=== PATIENT | female | born 1945 | race Caucasian/White ===

== ENCOUNTER → 2017-06-05 | Outpatient (CLI) | payer MEDICARE ==
[2017-06-08 14:19] LABS: Protein C (Activity) 85 % (70 - 130)
[2017-06-08 14:58] LABS: Hexagonal Phase Neutralization Positive (Negative)
[2017-06-09 11:41] LABS: Free Protein S Antigen 116 % (50 - 147)
== END | disposition home or self-care (01) ==
LOC: LABWHC1 09:51
PROVIDERS: ATTEND Family Medicine
DX: I82.409 Acute embolism and thrombosis of unspecified deep veins of unspecified lower extremity (principal)
CPT/HCPCS: 36415; 81241; 81291; 83090; 85300; 85303; 85306; 85613; 85730; 86147

== ENCOUNTER → 2018-01-20 | Outpatient (CLI) | payer MEDICARE ==
--- NOTE | 2018-01-21 11:18 | MM ---
Reason for exam: screening (asymptomatic). Last mammogram was performed 2 years and 2 months ago. History: Patient is postmenopausal and is nulliparous. Took estrogen for 4 years beginning at age 56. Took progesterone for 4 years beginning at age 56. Physical Findings: A clinical breast exam by your physician is recommended on an annual basis and results should be correlated with mammographic findings. MG 3D Screening Mammo W/Cad Bilateral CC and MLO view(s) were taken. Prior study comparison: November 07, 2015, bilateral MG screening mammo w CAD. There are scattered fibroglandular densities. There is chronic nodularity bilaterally. No significant changes when compared with prior studies. ASSESSMENT: Benign, BI-RAD 2 RECOMMENDATION: Routine screening mammogram of both breasts in 1 year.
== END | disposition home or self-care (01) ==
LOC: RADMAMWWP 10:30
PROVIDERS: ATTEND Family Medicine
DX: Z12.31 Encounter for screening mammogram for malignant neoplasm of breast (principal)
CPT/HCPCS: 77063; 77067

== ENCOUNTER → 2019-06-01 | Outpatient (CLI) | payer MEDICARE ==
--- NOTE | 2019-06-02 14:52 | MM ---
Reason for exam: screening (asymptomatic). Last mammogram was performed 1 year and 4 months ago. History: Patient is postmenopausal and is nulliparous. Took estrogen for 4 years beginning at age 56. Took progesterone for 4 years beginning at age 56. Physical Findings: A clinical breast exam by your physician is recommended on an annual basis and results should be correlated with mammographic findings. MG 3D Screening Mammo W/Cad Bilateral CC and MLO view(s) were taken. Prior study comparison: January 20, 2018, bilateral MG 3d screening mammo w/cad. November 22, 2015, left breast MG 3d work up w/cad LT. There is chronic nodularity bilaterally. No significant changes when compared with prior studies. ASSESSMENT: Benign, BI-RAD 2 RECOMMENDATION: Routine screening mammogram of both breasts in 1 year.
== END | disposition home or self-care (01) ==
LOC: RADMAMWWP 14:31
PROVIDERS: ATTEND Family Medicine
DX: Z12.31 Encounter for screening mammogram for malignant neoplasm of breast (principal)
CPT/HCPCS: 77063; 77067

== ENCOUNTER 2021-05-08 20:07 | Inpatient (IN) | payer MEDICARE ==
[2021-05-08] MEDS ORDERED: SODIUM CHLORIDE 0.9% 1,000 ML IV STA (21:07)
[2021-05-08] MEDS ORDERED: MORPHINE SULFATE 2 MG/ML SYRINGE IVP STA (21:07)
[2021-05-08] MEDS ORDERED: ONDANSETRON 4 MG/2 ML VIAL IVP STA (21:07)
[2021-05-08 21:23] LABS: Basophils # (A) 0.1 k/uL (0-0.2); Basophils % (A) 0 %; Eosinophils # (A) 0.1 k/uL (0-0.7); Eosinophils % (A) 1 %; HCT 39.7 % (34.0-46.0); HGB 12.8 gm/dL (11.4-16.0); Lymphocytes % (A) 16 %; MCH 25.8 pg (25.0-35.0); MCHC 32.1 g/dL (31.0-37.0); MCV 80.3 fL (80.0-100.0); Mean Platelet Volume 10.1; Monocytes # (A) 0.9 k/uL (0-1.0); Monocytes % (A) 8 %; Neutrophils # (A) 9.3 k/uL (1.3-7.7); Neutrophils % (A) 74 %; Platelet Count 163 k/uL (150-450); RBC 4.94 m/uL (3.80-5.40); RDW 14.2 % (11.5-15.5); WBC 12.6 k/uL (3.8-10.6)
[2021-05-08 21:37] LABS: Appearance,Urine Clear (Clear); Bilirubin,Urine Negative (Negative); Blood,Urine Negative (Negative); Color,Urine Light Yellow; Glucose,Urine (UA) Negative (Negative); Ketones,Urine Negative (Negative); Leukocyte Esterase,Urine Negative (Negative); Nitrite,Urine Negative (Negative); Protein,Urine Negative (Negative); Specific Gravity,Urine 1.003 (1.001-1.035); Urobilinogen,Urine <2.0 mg/dL (<2.0)
[2021-05-08 22:15] LABS: ALT 18 U/L (4-34); AST 28 U/L (14-36); African American GFR (CKD) >90 (>60 ml/min/1.73 sqM); Alkaline Phosphatase 97 U/L (38-126); Amylase 74 U/L (30-110); Anion Gap 8 mmol/L; Blood Urea Nitrogen 10 mg/dL (7-17); Calcium 9.3 mg/dL (8.4-10.2); Carbon Dioxide 25 mmol/L (22-30); Chloride 105 mmol/L (98-107); Glucose 114 mg/dL (74-99); Lipase 133 U/L (23-300); Non-African American GFR(CKD) 88 (>60 ml/min/1.73 sqM); Potassium 3.9 mmol/L (3.5-5.1); Sodium 138 mmol/L (137-145); Total Bilirubin 1.8 mg/dL (0.2-1.3); Total Protein 6.7 g/dL (6.3-8.2)
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
[2021-05-08] MEDS ORDERED: HYDROmorphone 0.5 MG/0.5 ML SYRINGE IVP STA (22:31)
--- NOTE | 2021-05-08 22:42 | CT ---
EXAMINATION TYPE: CT abdomen pelvis wo con DATE OF EXAM: 05/08/2021 COMPARISON: 02/14/2016 HISTORY: flank pain CT DLP: 772.2 mGycm Automated exposure control for dose reduction was used. Lung bases are clear. There is no pleural effusion. Heart size is normal. There is no pericardial eff usion. Liver spleen stomach pancreas appear intact. There are several calcified gallstones. The bile ducts a re not dilated. Gallbladder is large and measures 5 cm in diameter. Common bile duct is not dilated. There is no adrenal mass. Kidneys have normal size. There are apparent left side renal parapelvic cys ts. The ureters are not dilated. There is no retroperitoneal adenopathy. Bladder distends smoothly. T here is left hip prosthesis. There is no inguinal hernia. There are multiple sigmoid diverticula. The re is no diverticulitis. Appendix is not clearly seen. There is no sign of thickened appendix. There is no mesenteric edema. T here is no ascites or free air. There is no bowel obstruction. The bony pelvis is intact. Lumbar spin e appears intact. There is no compression fracture. IMPRESSION: Cholelithiasis. There is dilated gallbladder which is a change compared to old exam. Cholecystitis is possible. Sigmoid diverticulosis without diverticulitis. No evidence of renal stone or obstruction.
[2021-05-08] MEDS ORDERED: NALOXONE 0.4 MG/ML 1 ML VIAL IV PRN (23:10)
[2021-05-08] MEDS ORDERED: ONDANSETRON 4 MG/2 ML VIAL IVP PRN (23:10)
[2021-05-08] MEDS ORDERED: PIPERACILLIN-TAZOBACTAM 3.375 GM in SODIUM CHLORIDE 0.9% 100 ML IVPB ONE (23:15)
[2021-05-09] MEDS: SODIUM CHLORIDE 0.9% 1,000 ML IV SCH ×3 (01:23→21:18)
[2021-05-09] MEDS ORDERED: HYDROmorphone 1 MG/ML 1 ML SYRINGE IVP PRN (01:47)
[2021-05-09 06:56] LABS: Glucose,Whole Blood 93 mg/dL (75-99)
[2021-05-09] MEDS: PIPERACILLIN-TAZOBACTAM 3.375 GM in SODIUM CHLORIDE 0.9% 100 ML IVPB SCH ×3 (08:02→23:36)
[2021-05-09] MEDS: HYDROmorphone 0.5 MG/0.5 ML SYRINGE IVP PRN ×2 (09:32→15:15)
[2021-05-09 12:10] LABS: Glucose,Whole Blood 94 mg/dL (75-99)
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
[2021-05-09] MEDS ORDERED: LIDOCAINE 1% (10MG/ML) FOR IV START INTRADERMA PRN (14:14)
[2021-05-09 17:45] LABS: Glucose,Whole Blood 106 mg/dL (75-99)
[2021-05-09] MEDS: LACTATED RINGERS 1,000 ML IV SCH (19:44)
[2021-05-09 20:42] LABS: Glucose,Whole Blood 128 mg/dL (75-99)
[2021-05-09] MEDS: ATORVASTATIN 20 MG TAB PO SCH (21:17)
[2021-05-09] MEDS: PANTOPRAZOLE 40 MG TABLET PO SCH (21:18)
[2021-05-10] MEDS: SODIUM CHLORIDE 0.9% 1,000 ML IV SCH ×2 (05:15→15:30)
[2021-05-10] MEDS: PIPERACILLIN-TAZOBACTAM 3.375 GM in SODIUM CHLORIDE 0.9% 100 ML IVPB SCH ×2 (07:46→16:51)
--- NOTE | 2021-05-10 07:52 | P.HPADDEND ---
H&P Addendum H&P Addendum Date: 05/10/21 Patient seen and evaluated. Echo obtained for cardiac clearance. Robotic cholecystectomy described reviewed
--- NOTE | 2021-05-10 08:01 | ECHOF ---
Referral Reason:Atrial fibrillation MEASUREMENTS -------- HEIGHT: 157.5 cm WEIGHT: 83.0 kg BP: RVIDd: 2.7 cm (< 3.3) IVSd: 1.2 cm (0.6 - 1.1) LVIDd: 3.4 cm (3.9 - 5.3) LVPWd: 1.4 cm (0.6 - 1.1) IVSs: 1.5 cm LVIDs: 2.7 cm LVPWs: 1.6 cm LA Diam: 4.1 cm (2.7 - 3.8) LAESV Index (A-L): 48.64 ml/m Ao Diam: 2.7 cm (2.0 - 3.7) AV Cusp: 2.0 cm (1.5 - 2.6) LA Diam: 4.0 cm (2.7 - 3.8) MV EXCURSION: 13.189 mm (> 18.000) MV EF SLOPE: 66 mm/s (70 - 150) EPSS: 0.5 cm MV E Ronni: 0.74 m/s MV DecT: 218 ms MV A Ronni: 1.06 m/s MV E/A Ratio: 0.70 RAP: 5.00 mmHg RVSP: 30.53 mmHg FINDINGS -------- Atrial fibrillation. This was a technically good study. The left ventricular size is normal. There is mild concentric left ventricular hypertrophy. Overa ll left ventricular systolic function is low-normal with, an EF between 50 - 55 %. The right ventricle is normal in size. LA is moderately dilated 34-39 ml/m2 The right atrial size is normal. There is mild aortic valve sclerosis. There is no evidence of aortic regurgitation. Mild mitral annular calcification present. Mild mitral regurgitation is present. Mild tricuspid regurgitation present. Right ventricular systolic pressure is normal at < 35 mmHg. There is no pulmonic regurgitation present. The aortic root size is normal. There is no pericardial effusion. CONCLUSIONS -------- 1. The left ventricular size is normal. 2. There is mild concentric left ventricular hypertrophy. 3. Overall left ventricular systolic function is low-normal with, an EF between 50 - 55 %. 4. The right ventricle is normal in size. 5. LA is moderately dilated 34-39 ml/m2 6. The right atrial size is normal. 7. There is mild aortic valve sclerosis. 8. Mild mitral annular calcification present. 9. Mild mitral regurgitation is present. 10. Mild tricuspid regurgitation present. 11. The aortic root size is normal. 12. There is no pericardial effusion. COMPLIANCE COUNSEL: Yanni Riggs RDCS
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
[2021-05-10 08:55] LABS: Basophils % (A) 0 %; Eosinophils # (A) 0.1 k/uL (0-0.7); Eosinophils % (A) 1 %; HGB 12.4 gm/dL (11.4-16.0); Lymphocytes # (A) 1.8 k/uL (1.0-4.8); Lymphocytes % (A) 19 %; MCH 27.7 pg (25.0-35.0); MCHC 34.4 g/dL (31.0-37.0); MCV 80.7 fL (80.0-100.0); Mean Platelet Volume 10.1; Monocytes # (A) 0.8 k/uL (0-1.0); Monocytes % (A) 8 %; Neutrophils # (A) 6.6 k/uL (1.3-7.7); Neutrophils % (A) 70 %; Platelet Count 131 k/uL (150-450); RBC 4.46 m/uL (3.80-5.40); RDW 13.9 % (11.5-15.5); WBC 9.5 k/uL (3.8-10.6)
[2021-05-10 09:01] LABS: Prothrombin Time 10.9 sec (9.0-12.0)
[2021-05-10 09:03] LABS: ALT 22 U/L (4-34); AST 29 U/L (14-36); African American GFR (CKD) >90 (>60 ml/min/1.73 sqM); Albumin 3.3 g/dL (3.5-5.0); Albumin/Globulin Ratio 1.3; Alkaline Phosphatase 106 U/L (38-126); Anion Gap 6 mmol/L; Blood Urea Nitrogen 7 mg/dL (7-17); Calcium 8.9 mg/dL (8.4-10.2); Carbon Dioxide 26 mmol/L (22-30); Chloride 108 mmol/L (98-107); Globulin 2.6 g/dL; Glucose 107 mg/dL (74-99); Non-African American GFR(CKD) 87 (>60 ml/min/1.73 sqM); Potassium 3.9 mmol/L (3.5-5.1); Sodium 140 mmol/L (137-145); Total Bilirubin 2.7 mg/dL (0.2-1.3); Total Protein 5.9 g/dL (6.3-8.2)
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
--- NOTE | 2021-05-10 15:02 | US ---
EXAMINATION TYPE: US gallbladder DATE OF EXAM: 05/10/2021 COMPARISON: NONE CLINICAL HISTORY: CBD stones. known GB stones, pending cholecystectomy tomorrow EXAM MEASUREMENTS: Liver Length: 18.8 cm Gallbladder Wall: 0.7 cm CBD: 0.6 cm Right Kidney: 10.5 x 4.5 x 5.3 cm Pancreas: not seen due to bowel gas Liver: limited views due to bowel gas, borderline large for size Gallbladder: multiple stones, wall thickening, pericholecystic gutter fluid Evidence for sonographic Solorzano's sign: no CBD: wnl Right Kidney: wnl IMPRESSION: 1. Borderline enlarged liver. 2. Cholelithiasis with small amount of pericholecystic fluid.
--- NOTE | 2021-05-10 15:41 | P.PN ---
Subjective Progress Note Date: 05/10/21 Patient presents with history of cholelithiasis. Total bilirubin now elevated. Cardiac clearance pending. Recommend GI consultation for possible CBD obstruction. Right upper quadrant ultrasound to assess common bile duct size for suspected CBD obstruction Otherwise surgery deferred until cardiac clearance obtained Objective - Vital Signs Vital signs: Vital Signs Temp 98.6 F 05/10/21 07:00 Pulse 64 05/10/21 07:00 Resp 19 05/10/21 07:00 BP 164/68 05/10/21 07:00 Pulse Ox 95 05/10/21 07:00 Intake & Output 05/09/21 05/10/21 05/10/21 18:59 06:59 18:59 Intake Total 400 Balance 400 Intake: Oral 400 Other: Voiding Method Toilet # Voids 1 2 - Labs CBC & Chem 7: 05/10/21 08:20 05/10/21 08:20 Labs: Abnormal Lab Results - Last 24 Hours (Table) 05/09/21 05/09/21 05/10/21 Range/Units 17:43 20:40 08:20 Plt Count 131 L (150-450) k/uL Chloride (98-107) mmol/L Glucose (74-99) mg/dL POC Glucose (mg/dL) 106 H 128 H (75-99) mg/dL Total Bilirubin (0.2-1.3) mg/dL Total Protein (6.3-8.2) g/dL Albumin (3.5-5.0) g/dL 05/10/21 Range/Units 08:20 Plt Count (150-450) k/uL Chloride 108 H (98-107) mmol/L Glucose 107 H (74-99) mg/dL POC Glucose (mg/dL) (75-99) mg/dL Total Bilirubin 2.7 H (0.2-1.3) mg/dL Total Protein 5.9 L (6.3-8.2) g/dL Albumin 3.3 L (3.5-5.0) g/dL Microbiology - Last 24 Hours (Table) 05/08/21 23:50 Blood Culture - Preliminary Blood No Growth after 24 hours 05/08/21 23:35 Blood Culture - Preliminary Blood No Growth after 24 hours
--- NOTE | 2021-05-10 15:43 | P.PN ---
Subjective Progress Note Date: 05/10/21 Margot Redmond is a 76 yo F with PMH of HTN, HLD, hx DVT on xarelto who presented to the ED complaining of continued R abdominal and flank pain over the past few weeks. She states this has been intermittent and over the past few days has become constant and severe. She also endorses nausea, no vomiting. Denies fever, chills dizziness. She denies dysuria. On presentation pt hypertensive, WBC 12.6, bilirubin 1.8, CT abd/pelvis with gallstones and wall thickening. 05/10/2021 NPO, scheduled for surgery today. Xarelto on hold. Maintained on Zosyn. Right upper quadrant tenderness. Denies chest pain, palpitations or shortness of breath. Afebrile, WBC within normal limits. Renal function stable. Objective - Vital Signs Vital signs: Vital Signs Temp 98.4 F 05/10/21 14:47 Pulse 66 05/10/21 14:47 Resp 18 05/10/21 14:47 BP 152/72 05/10/21 14:47 Pulse Ox 96 05/10/21 14:47 Intake & Output 05/09/21 05/10/21 05/10/21 18:59 06:59 18:59 Intake Total 400 240 Balance 400 240 Intake: Oral 400 240 Other: Voiding Method Toilet # Voids 1 2 3 - Exam Gen: Alert and oriented 3, sitting up in bed ,NAD. Vitals reviewed HEENT: normocephalic, atraumatic, mucus membranes dry. Neck: supple, no thyromegaly, no JVD CV: RRR, no murmur Lungs: normal effort, clear throughout Abd: soft, RUQ tenderness Neuro: no focal deficits Skin: warm and dry - Labs CBC & Chem 7: 05/10/21 08:20 05/10/21 08:20 Labs: Abnormal Lab Results - Last 24 Hours (Table) 05/09/21 05/09/21 05/10/21 Range/Units 17:43 20:40 08:20 Plt Count 131 L (150-450) k/uL Chloride (98-107) mmol/L Glucose (74-99) mg/dL POC Glucose (mg/dL) 106 H 128 H (75-99) mg/dL Total Bilirubin (0.2-1.3) mg/dL Total Protein (6.3-8.2) g/dL Albumin (3.5-5.0) g/dL 05/10/21 Range/Units 08:20 Plt Count (150-450) k/uL Chloride 108 H (98-107) mmol/L Glucose 107 H (74-99) mg/dL POC Glucose (mg/dL) (75-99) mg/dL Total Bilirubin 2.7 H (0.2-1.3) mg/dL Total Protein 5.9 L (6.3-8.2) g/dL Albumin 3.3 L (3.5-5.0) g/dL Microbiology - Last 24 Hours (Table) 05/08/21 23:50 Blood Culture - Preliminary Blood No Growth after 24 hours 05/08/21 23:35 Blood Culture - Preliminary Blood No Growth after 24 hours Assessment and Plan Assessment: 1. Acute cholecystitis. 2. HTN. 3. HLD. 4.GERD. Plan: Continue on current medication regime ,monitoring and symptomatic treatment. NPO,OR pending. Pain management as per surgery. Aggressive pulmonary toileting with incentive spirometer ordered. The impression and plan of care has been dictated as directed. : I performed a history and examination of this patient, discussed the same with the dictator. I agree with the dictator's note ,documented as a scribe. Any additional findings or plans will be noted.
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
[2021-05-10] MEDS: PANTOPRAZOLE 40 MG TABLET PO SCH (20:12)
[2021-05-10] MEDS: ATORVASTATIN 20 MG TAB PO SCH (20:12)
[2021-05-10] MEDS: LACTATED RINGERS 1,000 ML IV SCH (22:40)
[2021-05-11] MEDS: PIPERACILLIN-TAZOBACTAM 3.375 GM in SODIUM CHLORIDE 0.9% 100 ML IVPB SCH ×5 (00:43→23:12)
[2021-05-11] MEDS: SODIUM CHLORIDE 0.9% 1,000 ML IV SCH ×3 (00:43→23:10)
[2021-05-11] MEDS ORDERED: INDOCYANINE GREEN 25 MG VIAL IV STA (07:24)
[2021-05-11 07:54] LABS: ALT 25 U/L (4-34); AST 32 U/L (14-36); African American GFR (CKD) >90 (>60 ml/min/1.73 sqM); Albumin 3.1 g/dL (3.5-5.0); Albumin/Globulin Ratio 1.2; Alkaline Phosphatase 132 U/L (38-126); Anion Gap 5 mmol/L; Blood Urea Nitrogen 8 mg/dL (7-17); Calcium 8.9 mg/dL (8.4-10.2); Carbon Dioxide 24 mmol/L (22-30); Chloride 111 mmol/L (98-107); Globulin 2.6 g/dL; Glucose 108 mg/dL (74-99); Non-African American GFR(CKD) 86 (>60 ml/min/1.73 sqM); Potassium 3.9 mmol/L (3.5-5.1); Sodium 140 mmol/L (137-145); Total Bilirubin 2.4 mg/dL (0.2-1.3); Total Protein 5.7 g/dL (6.3-8.2)
[2021-05-11] MEDS: HEPARIN SODIUM,PORCINE/PF 5,000 UNIT/0.5 ML SYRINGE SQ SCH ×2 (08:59→21:02)
[2021-05-11] MEDS: LACTATED RINGERS 1,000 ML IV SCH ×2 (09:17→10:23)
[2021-05-11] MEDS: lisinopriL 20 MG TAB PO SCH (09:18)
[2021-05-11] MEDS ORDERED: MIDAZOLAM 2 MG/2 ML VIAL IV ONE (09:38)
[2021-05-11] MEDS ORDERED: PROPOFOL 10 MG/ML 20 ML VIAL IV ONE (10:23)
[2021-05-11] MEDS ORDERED: LIDOCAINE 1% INJ 10MG/ML (20 ML MDV) ONE (10:23)
[2021-05-11] MEDS ORDERED: SUCCINYLCHOLINE CHLORIDE 100 MG/5 ML SYR IV ONE (10:23)
[2021-05-11] MEDS ORDERED: NEOSTIGMINE 1 MG/ML 10 ML VIAL ONE (10:23)
[2021-05-11] MEDS ORDERED: GLYCOPYRROLATE 0.2 MG/ML 2 ML VIAL ONE (10:23)
[2021-05-11] MEDS ORDERED: LIDOCAINE 1%-EPI 1:100,000 20 ML VIAL SQ ONE (10:23)
[2021-05-11] MEDS ORDERED: fentaNYL (PF) 50 MCG/ML 2 ML AMP ONE (10:23)
[2021-05-11] MEDS ORDERED: HYDROmorphone (PF) 1 MG/ML ONE (10:23)
[2021-05-11] MEDS ORDERED: MIDAZOLAM 2 MG/2 ML VIAL ONE (10:23)
[2021-05-11] MEDS ORDERED: ROCURONIUM 10 MG/ML (5 ML VIAL) IV ONE (10:23)
--- NOTE | 2021-05-11 10:23 | P.HPADDEND ---
H&P Addendum H&P Addendum Date: 05/11/21 Benefits and risks robotic cholecystectomy described including the increased risks of bleeding due to chronic anticoagulation. Patient was to proceed with surgery as described.
[2021-05-11] MEDS ORDERED: LACTATED RINGERS 1,000 ML IV ONE (12:10)
--- NOTE | 2021-05-11 12:27 | P.PN ---
Subjective Progress Note Date: 05/11/21 Principal diagnosis: Cholelithiasis, elevated liver enzymes Unable to see patient was undergoing a cholecystectomy, we'll reevaluate tomorrow. Objective - Vital Signs Vital signs: Vital Signs Temp 98.5 F 05/11/21 09:18 Pulse 60 05/11/21 09:18 Resp 16 05/11/21 09:18 BP 177/81 05/11/21 09:18 Pulse Ox 96 05/11/21 09:18 Intake & Output 05/10/21 05/11/21 05/11/21 18:59 06:59 18:59 Intake Total 480 900 200 Output Total 30 Balance 480 900 170 Weight 83.007 kg Intake: IV 200 Intake, IV Titration 900 Amount Piperacillin-Tazobactam 3 100 .375 gm In Sodium Chloride 0.9% 100 ml @ 25 mls/hr IVPB Q8HR [facility] Rx# :[id number] Sodium Chloride 0.9% 1, 800 000 ml @ 100 mls/hr IV . Q10H [facility] Rx#:[id number] Oral 480 Output: Estimated Blood Loss 30 Other: Voiding Method Toilet Toilet # Voids 3 2 1 - Labs CBC & Chem 7: 05/10/21 08:20 05/11/21 06:09 Labs: Abnormal Lab Results - Last 24 Hours (Table) 05/11/21 05/11/21 Range/Units 06:09 06:09 Chloride 111 H (98-107) mmol/L Glucose 108 H (74-99) mg/dL Total Bilirubin 2.5 H 2.4 H (0.2-1.2) mg/dL Alkaline Phosphatase 132 H (38-126) U/L Total Protein 5.7 L (6.3-8.2) g/dL Albumin 3.1 L (3.5-5.0) g/dL Microbiology - Last 24 Hours (Table) 05/08/21 23:50 Blood Culture - Preliminary Blood No Growth after 48 hours 05/08/21 23:35 Blood Culture - Preliminary Blood No Growth after 48 hours
[2021-05-11] MEDS: HYDROmorphone 0.5 MG/0.5 ML SYRINGE IVP PRN ×3 (12:36→23:04)
[2021-05-11] MEDS ORDERED: ACETAMINOPHEN IV (For NPO) 1,000 MG in EMPTY BAG 1 BAG IVPB ONE (12:57)
--- NOTE | 2021-05-11 13:00 | P.OP ---
Date of Procedure: 05/11/21 Preoperative Diagnosis: Acute cholecystitis, chronic anticoagulation Postoperative Diagnosis: Acute gangrene cholecystitis with hydrops Procedure(s) Performed: Robotic cholecystectomy, placement #19 drain right upper quadrant Anesthesia: SOFÍAA, local Surgeon: Annie Montesinos Estimated Blood Loss (ml): 30 Pathology: other (Anaerobic and aerobic cultures gallbladder fluid) Condition: stable Disposition: floor Operative Findings: 1. Clear bile from the gallbladder consistent with hydrops and acute cholecystitis due to cystic duct obstruction 2. Infundibulum was adherent to the common bile duct requiring subtotal cholecystectomy along infundibulum
[2021-05-11] MEDS: PANTOPRAZOLE 40 MG TABLET PO SCH (21:01)
[2021-05-11] MEDS: ATORVASTATIN 20 MG TAB PO SCH (21:01)
[2021-05-11] MEDS: TRIAMCINOLONE 0.1% CREAM 80 GM TUBE TOPICAL SCH (21:04)
--- NOTE | 2021-05-11 21:14 | PN ---
PROGRESS NOTE DATE OF SERVICE: 05/11/2021 I am covering for Dr. Jeffers. HISTORY: This 76-year-old woman admitted with acute cholecystitis, underwent robotic assisted laparoscopic cholecystectomy by Dr. Montesinos. There is no history of chest pain, palpitations, GI bleed. The patient is able to ambulate with support at this time. PHYSICAL EXAMINATION: Alert and oriented x2. Pulse 71, blood pressure 147/72, respirations 16, temperature 97. 4 HEENT: Conjunctivae normal. NECK: No JVD. CARDIOVASCULAR: S1 and S2 present. LUNGS: Breath sounds diminished in the bases. No rhonchi. No crackles. ABDOMEN: Soft distended, status post surgery. EXTREMITIES: Legs no edema no swelling. NERVOUS SYSTEM: As mentioned. No focal deficits. LABS: WBC 9.2, platelets 131, and total bilirubin is 2.4, alkaline phosphatase 132, total protein is 5.7. ASSESSMENT: 1. Acute cholecystitis, status post robotic assisted laparoscopic cholecystectomy. 2. Thrombocytopenia. 3. Elevated bilirubin. 4. Elevated alkaline phosphatase. 5. History of gastroesophageal reflux disease. 6. Hyperlipidemia. 7. History of degenerative joint disease. 8. History of depression. 9. Eczema. 10.FULL CODE. RECOMMENDATIONS AND DISCUSSION: In this 76-year-old with multiple medical issues, at this time I recommend to continue current management and symptomatic treatment. The patient underwent laparoscopic cholecystectomy today. I would recommend repeat labs. Patient already on broad- spectrum IV antibiotics. Incentive spirometry. DVT prophylaxis. Resume home eczema ointment as well. Continue to monitor. MMODL / IJN: [id number] /
[2021-05-12] MEDS: HYDROmorphone 0.5 MG/0.5 ML SYRINGE IVP PRN ×4 (03:54→21:26)
[2021-05-12] MEDS: PIPERACILLIN-TAZOBACTAM 3.375 GM in SODIUM CHLORIDE 0.9% 100 ML IVPB SCH ×2 (09:06→16:30)
[2021-05-12] MEDS: TRIAMCINOLONE 0.1% CREAM 80 GM TUBE TOPICAL SCH ×2 (09:07→21:21)
[2021-05-12] MEDS: HEPARIN SODIUM,PORCINE/PF 5,000 UNIT/0.5 ML SYRINGE SQ SCH ×2 (09:07→21:21)
[2021-05-12] MEDS: lisinopriL 20 MG TAB PO SCH (09:07)
[2021-05-12 10:40] LABS: African American GFR (CKD) 96.9 (60.0-200.0); Albumin 3.6 g/dL (3.80-4.90); Albumin/Globulin Ratio 1.57 (1.60-3.17); Anion Gap 8.2 mmol/L (4.00-12.00); BUN/Creat Ratio 12.86 Ratio (12.00-20.00); Calcium 8.6 mg/dL (8.7-10.3); Carbon Dioxide 24.8 mmol/L (21.6-31.8); Globulin 2.3 g/dL (1.6-3.3); Non-African American GFR(CKD) 83.6 (60.0-200.0); Potassium 4.1 mmol/L (3.5-5.5); Total Bilirubin 2.7 mg/dL (0.2-1.2); Total Protein 5.9 g/dL (6.2-8.2)
[2021-05-12] MEDS ORDERED: SENNOSIDES 8.6 MG TAB PO PRN (11:32)
[2021-05-12 11:35] LABS: Basophils # (A) 0.04 X 10*3/uL (0.00-0.10); Basophils % (A) 0.3 %; Eosinophils # (A) 0.03 X 10*3/uL (0.04-0.35); Eosinophils % (A) 0.2 %; HCT 36.3 % (37.2-46.3); HGB 11.7 g/dL (12.0-15.0); Lymphocytes # (A) 1.23 X 10*3/uL (0.90-5.00); Lymphocytes % (A) 9.5 %; MCHC 32.2 g/dL (32.0-37.0); MCV 83.6 fL (80.0-97.0); Mean Platelet Volume 13.1 fL (9.5-12.2); Monocytes # (A) 1.29 X 10*3/uL (0.20-1.00); Neutrophils # (A) 10.31 X 10*3/uL (1.80-7.70); Neutrophils % (A) 79.6 %; Platelet Count 158 X 10*3/uL (140-440); RBC 4.34 X 10*6/uL (4.10-5.20); RDW 14.5 % (11.5-14.5); WBC 12.95 X 10*3/uL (4.50-10.00)
[2021-05-12] MEDS: DOCUSATE 100 MG CAP PO SCH ×2 (14:51→21:20)
[2021-05-12] MEDS: SODIUM CHLORIDE 0.9% 1,000 ML IV SCH (15:22)
--- NOTE | 2021-05-12 15:33 | P.PN ---
Subjective Progress Note Date: 05/12/21 Family is at bedside. She complains of appropriate incisional pain. She has low appetite. LFTs continue to elevate with total bilirubin. Patient seen by GI for possible ERCP for choledocholithiasis MALU serosanguinous PLAN: 1. Repeat labs 2. Possible ERCP per GI 3. All questions addressed with family. Objective - Vital Signs Vital signs: Vital Signs Temp 99.3 F 05/12/21 14:07 Pulse 88 05/12/21 14:07 Resp 16 05/12/21 14:07 BP 143/79 05/12/21 14:07 Pulse Ox 90 L 05/12/21 14:07 Intake & Output 05/11/21 05/12/21 05/12/21 18:59 06:59 18:59 Intake Total 1500 Output Total 80 30 Balance 1420 -30 Weight 83.007 kg Intake: IV 1500 Output: Drainage 50 30 Abdomen 50 30 Estimated Blood Loss 30 Other: Voiding Method Toilet Toilet # Voids 1 4 3 # Bowel Movements 0 - Labs CBC & Chem 7: 05/12/21 04:56 05/12/21 04:56 Labs: Abnormal Lab Results - Last 24 Hours (Table) 05/12/21 05/12/21 Range/Units 04:56 04:56 WBC 12.95 H (4.50-10.00) X 10*3/uL Hgb 11.7 L (12.0-15.0) g/dL Hct 36.3 L (37.2-46.3) % MPV 13.1 H (9.5-12.2) fL Immature Gran # 0.05 H (0.00-0.04) X 10*3/uL Neutrophils # 10.31 H (1.80-7.70) X 10*3/uL Monocytes # 1.29 H (0.20-1.00) X 10*3/uL Eosinophils # 0.03 L (0.04-0.35) X 10*3/uL Calcium 8.6 L (8.7-10.3) mg/dL Total Bilirubin 2.7 H (0.2-1.2) mg/dL AST 75 H (13-35) U/L ALT 57 H (8-44) U/L Alkaline Phosphatase 143 H (41-126) U/L Total Protein 5.9 L (6.2-8.2) g/dL Albumin 3.60 L (3.80-4.90) g/dL Albumin/Globulin Ratio 1.57 L (1.60-3.17) g/dL Microbiology - Last 24 Hours (Table) 05/11/21 12:25 Anaerobic Culture - Preliminary Aspirate 05/11/21 12:25 Body Fluid Culture - Preliminary Aspirate 05/08/21 23:50 Blood Culture - Preliminary Blood No Growth after 72 hours 05/08/21 23:35 Blood Culture - Preliminary Blood No Growth after 72 hours
--- NOTE | 2021-05-12 15:44 | PN ---
PROGRESS NOTE DATE OF SERVICE: 05/12/2021 I am covering for Dr. Jeffers. HISTORY: This 76-year-old woman who was admitted with abdominal pain underwent a laparoscopic cholecystectomy. Patient is complaining of some abdominal pain. No chest pain. No palpitations. No fever. PHYSICAL EXAMINATION: Alert orient x3. Pulse 88, blood pressure 140/70, respirations 16, temperature 99.2, pulse ox 98% on room air. HEENT: S1, S2, muffled. No S3, no S4, RESPIRATORY: Diminished breath sounds at the bases. ABDOMEN: Soft status post surgery. EXTREMITIES: Legs are no edema. No swelling. LABS: WBC 12.9, hemoglobin 11.9, bilirubin is 2.7, AST and ALT noted at 75 and 57. ASSESSMENT: 1. Acute cholecystitis, status post robotic assisted laparoscopic cholecystectomy. 2. Thrombocytopenia. 3. Elevated bilirubin. 4. Elevated AST and ALT. 5. Elevated alkaline phosphatase. 6. History of gastroesophageal reflux disease. 7. History of hyperlipidemia. 8. History of DJD. 9. History of depression. 10.History of eczema. 11.FULL CODE. RECOMMENDATIONS AND DISCUSSION: I recommend to continue current management and symptomatic treatment. Otherwise pain medications and DVT prophylaxis. The patient is on broad-spectrum IV antibiotics. I would recommend repeat labs in the morning. Dr. Jeffers is following tomorrow. MMODL / IJN: [id number] /
[2021-05-12 16:23] LABS: ALT 81 U/L (4-34); AST 108 U/L (14-36); African American GFR (CKD) >90 (>60 ml/min/1.73 sqM); Albumin 3.1 g/dL (3.5-5.0); Albumin/Globulin Ratio 1.1; Alkaline Phosphatase 188 U/L (38-126); Anion Gap 7 mmol/L; Blood Urea Nitrogen 9 mg/dL (7-17); Calcium 8.6 mg/dL (8.4-10.2); Carbon Dioxide 25 mmol/L (22-30); Chloride 104 mmol/L (98-107); Globulin 2.7 g/dL; Glucose 127 mg/dL (74-99); Non-African American GFR(CKD) 87 (>60 ml/min/1.73 sqM); Potassium 3.9 mmol/L (3.5-5.1); Sodium 136 mmol/L (137-145); Total Bilirubin 4.1 mg/dL (0.2-1.3); Total Protein 5.8 g/dL (6.3-8.2)
[2021-05-12] MEDS: PANTOPRAZOLE 40 MG TABLET PO SCH (21:20)
[2021-05-12] MEDS: ATORVASTATIN 20 MG TAB PO SCH (21:20)
[2021-05-12] MEDS: ACETAMINOPHEN TAB 325 MG TAB PO PRN (21:22)
[2021-05-13] MEDS: PIPERACILLIN-TAZOBACTAM 3.375 GM in SODIUM CHLORIDE 0.9% 100 ML IVPB SCH ×3 (00:31→16:04)
--- NOTE | 2021-05-13 07:31 | P.PN ---
Subjective Progress Note Date: 05/12/21 Principal diagnosis: Cholelithiasis, elevated liver enzymes The patient seen lying in bed today, some mild abdominal tenderness status post cholecystectomy. Total bilirubin 2.7 this morning. Objective - Vital Signs Vital signs: Vital Signs Temp 99.1 F 05/12/21 07:05 Pulse 69 05/12/21 07:05 Resp 16 05/12/21 07:05 BP 153/69 05/12/21 07:05 Pulse Ox 94 L 05/12/21 07:05 Intake & Output 05/11/21 05/12/21 05/12/21 18:59 06:59 18:59 Intake Total 1500 Output Total 80 30 Balance 1420 -30 Weight 83.007 kg Intake: IV 1500 Output: Drainage 50 30 Abdomen 50 30 Estimated Blood Loss 30 Other: Voiding Method Toilet Toilet # Voids 1 4 1 - Exam On physical examination, patient appears comfortable in no apparent distress. HEAD: Normocephalic, atraumatic. EYES: No scleral icterus. No conjunctival injection. MOUTH: No lesions, tongue midline. NECK: Trachea midline, no gross abnormalities. ABDOMEN: Soft, appropriately tender. Bowel sounds are positive. No organomegaly. No guarding or rigidity. EXTREMITIES: No pedal edema. SKIN: No rashes, no jaundice. NEUROLOGIC: Alert and oriented x3. No focal deficits. - Labs CBC & Chem 7: 05/12/21 04:56 05/12/21 15:49 Labs: Abnormal Lab Results - Last 24 Hours (Table) 05/12/21 Range/Units 04:56 Calcium 8.6 L (8.7-10.3) mg/dL Total Bilirubin 2.7 H (0.2-1.2) mg/dL AST 75 H (13-35) U/L ALT 57 H (8-44) U/L Alkaline Phosphatase 143 H (41-126) U/L Total Protein 5.9 L (6.2-8.2) g/dL Albumin 3.60 L (3.80-4.90) g/dL Albumin/Globulin Ratio 1.57 L (1.60-3.17) g/dL Microbiology - Last 24 Hours (Table) 05/11/21 12:25 Anaerobic Culture - Preliminary Aspirate 05/11/21 12:25 Body Fluid Culture - Preliminary Aspirate 05/08/21 23:50 Blood Culture - Preliminary Blood No Growth after 72 hours 05/08/21 23:35 Blood Culture - Preliminary Blood No Growth after 72 hours Assessment and Plan (1) Cholelithiasis Narrative/Plan: 76-year-old female presenting with complaints of abdominal pain with imaging suggestive of cholecystitis and cholelithiasis she is status post laparoscopic cholecystectomy. Imaging with normal CBD and liver enzymes initially normal have been increasing with total bilirubin 2.7 today. Concern is for possible retained CBD stone, patient will be aborted for tentative ERCP tomorrow with all of the risks, benefits and possible, patient's explain to the patient lives with all of her concerns answered to her satisfaction. Current Visit: Yes Status: Acute Code(s): K80.20 - CALCULUS OF GALLBLADDER W/O CHOLECYSTITIS W/O OBSTRUCTION SNOMED Code(s): 526026472 (2) Cholecystitis Current Visit: Yes Status: Acute Code(s): K81.9 - CHOLECYSTITIS, UNSPECIFIED SNOMED Code(s): 60936099 (3) Abdominal pain Current Visit: Yes Status: Acute Code(s): R10.9 - UNSPECIFIED ABDOMINAL PAIN SNOMED Code(s): 83784899 Plan: Supportive care Okay for diet as tolerated Continue broad-spectrum antibiotic therapy Patient will be ordered for tentative ERCP tomorrow, if liver enzymes normalize this can be canceled, if they remain elevated will proceed with the procedure with all of the risks, benefits and possible, patient's extensive the patient length with all of her questions answered to her satisfaction Continue monitor CBC, BMP, LFTs Thank you for allowing us to participate in the care of the patient
[2021-05-13] MEDS: lisinopriL 20 MG TAB PO SCH (08:18)
[2021-05-13] MEDS: DOCUSATE 100 MG CAP PO SCH ×2 (08:18→20:07)
[2021-05-13] MEDS: HEPARIN SODIUM,PORCINE/PF 5,000 UNIT/0.5 ML SYRINGE SQ SCH ×2 (08:18→20:07)
[2021-05-13] MEDS: TRIAMCINOLONE 0.1% CREAM 80 GM TUBE TOPICAL SCH ×2 (08:19→20:07)
[2021-05-13 08:47] LABS: ALT 72 U/L (4-34); AST 67 U/L (14-36); African American GFR (CKD) >90 (>60 ml/min/1.73 sqM); Albumin/Globulin Ratio 1.1; Alkaline Phosphatase 190 U/L (38-126); Anion Gap 7 mmol/L; Blood Urea Nitrogen 6 mg/dL (7-17); Calcium 8.8 mg/dL (8.4-10.2); Carbon Dioxide 26 mmol/L (22-30); Chloride 107 mmol/L (98-107); Globulin 2.7 g/dL; Glucose 118 mg/dL (74-99); Non-African American GFR(CKD) 90 (>60 ml/min/1.73 sqM); Potassium 3.6 mmol/L (3.5-5.1); Sodium 140 mmol/L (137-145); Total Bilirubin 3.6 mg/dL (0.2-1.3); Total Protein 5.7 g/dL (6.3-8.2)
[2021-05-13 09:53] LABS: Basophils # (A) 0.02 X 10*3/uL (0.00-0.10); Basophils % (A) 0.2 %; Eosinophils # (A) 0.13 X 10*3/uL (0.04-0.35); Eosinophils % (A) 1.2 %; HCT 36.1 % (37.2-46.3); HGB 11.4 g/dL (12.0-15.0); Lymphocytes # (A) 1.57 X 10*3/uL (0.90-5.00); Lymphocytes % (A) 13.9 %; MCH 26.1 pg (27.0-32.0); MCHC 31.6 g/dL (32.0-37.0); MCV 82.6 fL (80.0-97.0); Mean Platelet Volume 13.2 fL (9.5-12.2); Monocytes # (A) 1.37 X 10*3/uL (0.20-1.00); Monocytes % (A) 12.2 %; Neutrophils # (A) 8.13 X 10*3/uL (1.80-7.70); Neutrophils % (A) 72.1 %; Platelet Count 156 X 10*3/uL (140-440); RBC 4.37 X 10*6/uL (4.10-5.20); RDW 14.4 % (11.5-14.5); WBC 11.27 X 10*3/uL (4.50-10.00)
[2021-05-13] MEDS ORDERED: INDOMETHACIN 50MG SUPPOSITORY RECTAL ONE (12:00)
[2021-05-13] MEDS ORDERED: PROPOFOL 10 MG/ML 20 ML VIAL IV ONE (13:23)
[2021-05-13] MEDS ORDERED: LACTATED RINGERS 1,000 ML IV ONE (13:23)
[2021-05-13] MEDS ORDERED: LIDOCAINE 1% INJ 10MG/ML (20 ML MDV) ONE (13:23)
--- NOTE | 2021-05-13 13:24 | P.PN ---
Subjective Progress Note Date: 05/13/21 CHIEF COMPLAINT: Abdominal pain HISTORY OF PRESENT ILLNESS: Surgical service is following in regards to arpit tiwari's acute gangrene cholecystitis with hydrops status post robotic cholecystectomy with drain placement. Patient did have elevated LFTs still after surgery. She is scheduled for an ERCP today. Patient still having some abdominal pain. It is controlled pain medication. She denies any nausea or vomiting. She did have a temp of 100.1 yesterday night. And this morning 99.2. WBC is 11.27 hemoglobin 11.4 with 156 total bilirubin 3.6 AST 67 ALT 72 alk phos 190 PHYSICAL EXAM: VITAL SIGNS: Reviewed GENERAL: Well-developed in no acute distress. HEENT: No sclera icterus. Extraocular movements grossly intact. Moist buccal mucosa. Head is atraumatic, normocephalic. Hears conversational speech. No nasal drainage. NECK: Supple without lymphadenopathy. CHEST: Non-labored respirations and equal bilateral excursions. CARDIOVASCULAR: Palpable 2+ radial pulses. ABDOMEN: Soft. Nondistended. Incision sites clean dry and intact. MALU drain with serous output MUSCULOSKELETAL: No clubbing or cyanosis. NEUROLOGIC: No focal or lateralizing signs. Cranial nerves II through XII grossly intact. PSYCH: Appropriate affect. Alert and oriented to person, place and time. SKIN: Well perfused. Good skin turgor. ASSESSMENT: 1. Acute gangrene cholecystitis with hydrops status post robotic cholecystectomy with drain placement 2. Elevated LFTs 3. History of left leg DVT anticoagulated with Xarelto 4. Borderline diabetic 5. History of abdominal lipoma requiring excision PLAN: -Patient scheduled for ERCP today -Continue antibiotics -Continue pain medication as needed -Encourage patient to ambulate -Encourage patient to use incentive spirometer Physician [place] [employer] note has been reviewed by physician. Signing provider agrees with the documented findings, assessment, and plan of care. Objective - Vital Signs Vital signs: Vital Signs Temp 99.2 F 05/13/21 07:44 Pulse 83 05/13/21 07:44 Resp 14 05/13/21 07:44 BP 138/77 05/13/21 07:44 Pulse Ox 95 05/13/21 07:44 Intake & Output 05/12/21 05/13/21 05/13/21 18:59 06:59 18:59 Output Total 20 Balance -20 Output: Drainage 20 Abdomen 20 Other: Voiding Method Toilet # Voids 3 4 1 # Bowel Movements 0 1 - Labs CBC & Chem 7: 05/13/21 05:49 05/13/21 05:49 Labs: Abnormal Lab Results - Last 24 Hours (Table) 05/12/21 05/13/21 05/13/21 Range/Units 15:49 05:49 05:49 WBC 11.27 H (4.50-10.00) X 10*3/uL Hgb 11.4 L (12.0-15.0) g/dL Hct 36.1 L (37.2-46.3) % MCH 26.1 L (27.0-32.0) pg MCHC 31.6 L (32.0-37.0) g/dL MPV 13.2 H (9.5-12.2) fL Immature Gran # 0.05 H (0.00-0.04) X 10*3/uL Neutrophils # 8.13 H (1.80-7.70) X 10*3/uL Monocytes # 1.37 H (0.20-1.00) X 10*3/uL Sodium 136 L (137-145) mmol/L BUN 6 L (7-17) mg/dL Glucose 127 H 118 H (74-99) mg/dL Total Bilirubin 4.1 H 3.6 H (0.2-1.3) mg/dL AST 108 H 67 H (14-36) U/L ALT 81 H 72 H (4-34) U/L Alkaline Phosphatase 188 H 190 H (38-126) U/L Total Protein 5.8 L 5.7 L (6.3-8.2) g/dL Albumin 3.1 L 3.0 L (3.5-5.0) g/dL Microbiology - Last 24 Hours (Table) 05/11/21 12:25 Gram Stain - Preliminary Aspirate Body Fluid Culture - Preliminary 05/08/21 23:50 Blood Culture - Preliminary Blood No Growth after 96 hours 05/08/21 23:35 Blood Culture - Preliminary Blood No Growth after 96 hours 05/11/21 12:25 Anaerobic Culture - Preliminary Aspirate
[2021-05-13] MEDS ORDERED: IOPAMIDOL-300 50ML BTL MISCELLANE ONE (13:50)
--- NOTE | 2021-05-13 14:03 | P.PCN ---
Date of Procedure: 05/13/21 Procedure(s) Performed: Brief history: Patient is a 76 year-old pleasant lady admitted to hospital 3 days ago and underwent gallbladder surgery for symptomatic gallstones. She was also noted to have a mild elevation of serum transaminases and bilirubin up to 4.2 postoperatively . Bilirubin today was 3.5. She is hence scheduled for an ERCP to evaluate further for possible CBD stones Procedure performed: ERCP with biliary sphincterotomy and CBD stone extraction Preoperative diagnoses: Elevated LFTs/jaundice/status post gallbladder surgery 2 days ago for symptomatic gallstones IV sedation per anesthesia: Procedure: After informed consent was obtained from the patient and after the risks benefits and complications including bleeding perforation and pancreatitis explained in detail the patient was brought into the endoscopy unit. The patient was placed in prone position and IV conscious sedation was administered by anesthesia under continuous monitoring. The Olympus side-viewing duodenoscope was then inserted into the mouth and esophagus intubated without any difficulty. The scope was gradually advanced into the stomach and duodenum. The major papilla was identified without any difficulty. Initial cannulation resulted in opacification of the common bile duct that appeared widely dilated measuring 8 mm in diameter. A small filling defect was noted in the distal common bile duct. At this time the catheter was exchanged over a guidewire and a biliary sphincterotome was advanced over the guidewire into the CBD and a sphincterotomy was performed at 11 o'clock position. His was extended to 1 cm. Following this the 8 mm balloon was passed over the guidewire into the proximal CBD gently inflated and withdrawn and a small stone was seen exiting the ampulla.. The maneuver was repeated 2 more times and no other stones were seen exiting the ampulla. The patient cholangio-Alfredo was performed which appeared normal. The pancreatic duct was intentionally not cannulated. Patient tolerated the procedure well. Impression: Slightly dilated common bile duct with a small filling defect status post biliary stent enterotomy and balloon stone extraction as described above Pancreatic duct not cannulated intentionally. Recommendations: The findings of this examination were discussed with the patient . She will be started on a clear liquid diet and repeat labs in the morning.
--- NOTE | 2021-05-13 14:11 | P.PN ---
Subjective Progress Note Date: 05/13/21 Margot Redmond is a 76 yo F with PMH of HTN, HLD, hx DVT on xarelto who presented to the ED complaining of continued R abdominal and flank pain over the past few weeks. She states this has been intermittent and over the past few days has become constant and severe. She also endorses nausea, no vomiting. Denies fever, chills dizziness. She denies dysuria. On presentation pt hypertensive, WBC 12.6, bilirubin 1.8, CT abd/pelvis with gallstones and wall thickening. 05/10/2021 NPO, scheduled for surgery today. Xarelto on hold. Maintained on Zosyn. Right upper quadrant tenderness. Denies chest pain, palpitations or shortness of breath. Afebrile, WBC within normal limits. Renal function stable. 05/13/2021 status post laparoscopic cholecystectomy secondary to acute gangrene cholecystitis with hydrops. Elevated LFTs/T bili postop. Scheduled for ERCP today. Reports outpatient she has a history of fluctuating elevated LFTs though on admission, LFTs within normal limits with mild elevated T bili 1.8. Denies chest pain, palpitations or shortness of breath. Minimal nausea. No bowel movement she reports since a week ago Thursday, passing flatus. Senokot initiated yesterday. T-max 100.1, labs pending. Objective - Vital Signs Vital signs: Vital Signs Temp 99.2 F 05/13/21 07:44 Pulse 83 05/13/21 07:44 Resp 14 05/13/21 07:44 BP 138/77 05/13/21 07:44 Pulse Ox 95 05/13/21 07:44 Intake & Output 05/12/21 05/13/21 05/13/21 18:59 06:59 18:59 Output Total 20 Balance -20 Output: Drainage 20 Abdomen 20 Other: Voiding Method Toilet # Voids 3 4 1 # Bowel Movements 0 1 - Exam Gen: Alert and oriented 3, sitting up in bed ,NAD. Vitals reviewed HEENT: normocephalic, atraumatic, mucus membranes dry. Neck: supple, no thyromegaly, no JVD CV: RRR, no murmur Lungs: normal effort, clear throughout Abd: soft, status post surgery tenderness, positive bowel sounds Neuro: no focal deficits Skin: warm and dry - Labs CBC & Chem 7: 05/13/21 05:49 05/13/21 05:49 Labs: Abnormal Lab Results - Last 24 Hours (Table) 05/12/21 05/12/21 05/12/21 Range/Units 04:56 04:56 15:49 WBC 12.95 H (4.50-10.00) X 10*3/uL Hgb 11.7 L (12.0-15.0) g/dL Hct 36.3 L (37.2-46.3) % MCH (27.0-32.0) pg MCHC (32.0-37.0) g/dL MPV 13.1 H (9.5-12.2) fL Immature Gran # 0.05 H (0.00-0.04) X 10*3/uL Neutrophils # 10.31 H (1.80-7.70) X 10*3/uL Monocytes # 1.29 H (0.20-1.00) X 10*3/uL Eosinophils # 0.03 L (0.04-0.35) X 10*3/uL Sodium 136 L (137-145) mmol/L BUN (7-17) mg/dL Glucose 127 H (74-99) mg/dL Calcium 8.6 L (8.7-10.3) mg/dL Total Bilirubin 2.7 H 4.1 H (0.2-1.2) mg/dL AST 75 H 108 H (13-35) U/L ALT 57 H 81 H (8-44) U/L Alkaline Phosphatase 143 H 188 H (41-126) U/L Total Protein 5.9 L 5.8 L (6.2-8.2) g/dL Albumin 3.60 L 3.1 L (3.80-4.90) g/dL Albumin/Globulin Ratio 1.57 L (1.60-3.17) g/dL 05/13/21 05/13/21 Range/Units 05:49 05:49 WBC 11.27 H (4.50-10.00) X 10*3/uL Hgb 11.4 L (12.0-15.0) g/dL Hct 36.1 L (37.2-46.3) % MCH 26.1 L (27.0-32.0) pg MCHC 31.6 L (32.0-37.0) g/dL MPV 13.2 H (9.5-12.2) fL Immature Gran # 0.05 H (0.00-0.04) X 10*3/uL Neutrophils # 8.13 H (1.80-7.70) X 10*3/uL Monocytes # 1.37 H (0.20-1.00) X 10*3/uL Eosinophils # (0.04-0.35) X 10*3/uL Sodium (137-145) mmol/L BUN 6 L (7-17) mg/dL Glucose 118 H (74-99) mg/dL Calcium (8.7-10.3) mg/dL Total Bilirubin 3.6 H (0.2-1.2) mg/dL AST 67 H (13-35) U/L ALT 72 H (8-44) U/L Alkaline Phosphatase 190 H (41-126) U/L Total Protein 5.7 L (6.2-8.2) g/dL Albumin 3.0 L (3.80-4.90) g/dL Albumin/Globulin Ratio (1.60-3.17) g/dL Microbiology - Last 24 Hours (Table) 05/11/21 12:25 Gram Stain - Preliminary Aspirate Body Fluid Culture - Preliminary 05/08/21 23:50 Blood Culture - Preliminary Blood No Growth after 96 hours 05/08/21 23:35 Blood Culture - Preliminary Blood No Growth after 96 hours 05/11/21 12:25 Anaerobic Culture - Preliminary Aspirate Assessment and Plan Assessment: 1. Acute gangrene cholecystitis with hydrops, status post cholecystectomy. 2. Elevated LFTs post surgery 2. HTN. 3. HLD. 4.GERD. Plan: Continue on current medication regime ,monitoring and symptomatic treatment. Continue on antibiotics. ERCP pending. Obtain /review LFTs from PCPs office. Aggressive pulmonary toileting with incentive spirometer ordered.Discharge planning as soon as tomorrow pending ERCP results, GI/surgery final DC recommendations and clearance The impression and plan of care has been dictated as directed. : I performed a history and examination of this patient, discussed the same with the dictator. I agree with the dictator's note ,documented as a scribe. Any additional findings or plans will be noted.
--- NOTE | 2021-05-13 18:02 | FL ---
EXAMINATION TYPE: FL ERCP DATE OF EXAM: 05/13/2021 FLUOROSCOPY Fluoroscopy time of 21 seconds was used during GI intervention for CBD stone. 1 image/s document/s t he procedure.
[2021-05-13] MEDS: ATORVASTATIN 20 MG TAB PO SCH (19:47)
[2021-05-13] MEDS: PANTOPRAZOLE 40 MG TABLET PO SCH (20:07)
[2021-05-14] MEDS: PIPERACILLIN-TAZOBACTAM 3.375 GM in SODIUM CHLORIDE 0.9% 100 ML IVPB SCH ×4 (00:54→23:55)
[2021-05-14] MEDS: ACETAMINOPHEN TAB 325 MG TAB PO PRN ×2 (06:30→20:58)
[2021-05-14] MEDS: HEPARIN SODIUM,PORCINE/PF 5,000 UNIT/0.5 ML SYRINGE SQ SCH ×2 (08:27→20:58)
[2021-05-14] MEDS: DOCUSATE 100 MG CAP PO SCH ×2 (08:28→20:59)
[2021-05-14] MEDS: TRIAMCINOLONE 0.1% CREAM 80 GM TUBE TOPICAL SCH ×2 (08:28→20:57)
[2021-05-14] MEDS: lisinopriL 20 MG TAB PO SCH (08:45)
[2021-05-14 09:22] LABS: HCT 35.1 % (34.0-46.0); HGB 11.7 gm/dL (11.4-16.0); MCH 26.7 pg (25.0-35.0); MCHC 33.3 g/dL (31.0-37.0); MCV 80.3 fL (80.0-100.0); Mean Platelet Volume 9.8; Platelet Count 172 k/uL (150-450); RBC 4.37 m/uL (3.80-5.40); RDW 13.6 % (11.5-15.5); WBC 10.2 k/uL (3.8-10.6)
[2021-05-14 09:35] LABS: ALT 123 U/L (4-34); AST 117 U/L (14-36); African American GFR (CKD) >90 (>60 ml/min/1.73 sqM); Albumin 3.1 g/dL (3.5-5.0); Alkaline Phosphatase 253 U/L (38-126); Anion Gap 9 mmol/L; Blood Urea Nitrogen 9 mg/dL (7-17); Calcium 9.2 mg/dL (8.4-10.2); Carbon Dioxide 25 mmol/L (22-30); Chloride 108 mmol/L (98-107); Glucose 100 mg/dL (74-99); Non-African American GFR(CKD) >90 (>60 ml/min/1.73 sqM); Potassium 3.5 mmol/L (3.5-5.1); Sodium 142 mmol/L (137-145); Total Bilirubin 4.7 mg/dL (0.2-1.3); Total Protein 5.9 g/dL (6.3-8.2)
--- NOTE | 2021-05-14 10:36 | P.PN ---
Subjective Progress Note Date: 05/14/21 Principal diagnosis: Choledocholithiasis This is a 76-year-old female who presented to the emergency department with abdominal pain, she is status post robotic cholecystectomy on 05/11/2021. On her initial CT of the abdomen and ultrasound she had no evidence of dilation in her common bile duct. She continued to have elevation in her LFTs, and underwent ERCP yesterday with balloon sweep and stone extraction. The patient is seen and examined sitting up in the bedside chair. She states her abdominal pain has significantly improved. She states she is passing gas and had a very small bowel movement. CBC shows improvement in WBC. Hemoglobin stable. CMP shows elevation of LFTS, total bilirubin 0.7, alkaline phosphatase 253, AST 117, ALT 123. She is tolerating a full liquid diet. Denies any nausea or vomiting. Patient states she has had elevation in her liver enzymes in the past, about two years ago for which PCP had been monitoring. She denies history of liver disease, hepatitis and states she was not sure what PCP thought was causing elevated liver enzymes. Scant amount of serosanguineous fluid from MALU drain. Objective - Vital Signs Vital signs: Vital Signs Temp 98.1 F 05/14/21 08:00 Pulse 51 L 05/14/21 08:00 Resp 16 05/14/21 08:00 BP 164/76 05/14/21 08:00 Pulse Ox 95 05/14/21 08:00 Intake & Output 05/13/21 05/14/21 05/14/21 18:59 06:59 18:59 Intake Total 200 400 Output Total 20 20 Balance 180 380 Intake: IV 200 Intake, IV Titration 200 Amount Piperacillin-Tazobactam 3 200 .375 gm In Sodium Chloride 0.9% 100 ml @ 25 mls/hr IVPB Q8HR [facility] Rx# :[id number] Oral 200 Output: Drainage 20 20 Abdomen 20 20 Other: # Voids 1 1 # Bowel Movements 1 - Exam General appearance: The patient is alert, oriented, appears in no acute distress. HET: Head is normocephalic and atraumatic. Conjunctiva pink. Sclera anicteric. Neck: Supple without lymphadenopathy. Abdomen: Soft, nontender, incision sites clean dry and intact, MALU drain, has some swelling in the right upper quadrant just above the incision site, nondistended with bowel sounds. No guarding or rigidity. Extremities: Normal skin color and turgor. No pedal edema Skin: No rashes, no jaundice Neurological: No focal deficits. Alert and oriented 3. - Labs CBC & Chem 7: 05/14/21 08:55 05/14/21 08:55 Labs: Abnormal Lab Results - Last 24 Hours (Table) 05/13/21 Range/Units 05:49 WBC 11.27 H (4.50-10.00) X 10*3/uL Hgb 11.4 L (12.0-15.0) g/dL Hct 36.1 L (37.2-46.3) % MCH 26.1 L (27.0-32.0) pg MCHC 31.6 L (32.0-37.0) g/dL MPV 13.2 H (9.5-12.2) fL Immature Gran # 0.05 H (0.00-0.04) X 10*3/uL Neutrophils # 8.13 H (1.80-7.70) X 10*3/uL Monocytes # 1.37 H (0.20-1.00) X 10*3/uL Microbiology - Last 24 Hours (Table) 05/08/21 23:50 Blood Culture - Preliminary Blood No Growth after 120 hours 05/08/21 23:35 Blood Culture - Preliminary Blood No Growth after 120 hours 05/11/21 12:25 Gram Stain - Preliminary Aspirate Body Fluid Culture - Preliminary Assessment and Plan (1) Abdominal pain Narrative/Plan: This is a 76-year-old female who presented to the emergency department 2 days ago with right flank, abdominal, and back pain which she reported as sharp and associated with nausea but no vomiting. Her initial blood work showed mild elevation in her total bilirubin at 1.8, all other LFTs unremarkable. She was afebrile. She underwent a CT of the abdomen and pelvis which showed evidence of cholelithiasis and a dilated gallbladder which is change from old exam, cholecystitis possible. Sigmoid diverticulosis without diverticulitis. Common bile duct is not dilated. On today's labs she had a mild elevation in her total bilirubin at 2.7, alkaline phosphatase 106, AST 29, ALT 22. Patient reports her abdominal pain has improved significantly, she denies any nausea or vomiting. Still has some mild discomfort in her lower abdomen. He ultrasound of the gallbladder was ordered today which shows evidence of cholelithiasis with small amount of. Clear cystic fluid, borderline enlarged liver. No CBD dilation, CBD measured at 0.6 cm. Mild elevation in total bilirubin can be related to possible cholecystitis. There was low suspicion for choledochalithiasis. Patient underwent cholecystectomy, 05/11/2021. She was then noted to have an increase in her LFTs, and underwent ERCP yesterday with stone extraction. Abdominal pain improved. Current Visit: Yes Status: Acute Code(s): R10.9 - UNSPECIFIED ABDOMINAL PAIN SNOMED Code(s): 43392809 (2) Cholelithiasis Narrative/Plan: Status post cholecystectomy Current Visit: Yes Status: Acute Code(s): K80.20 - CALCULUS OF GALLBLADDER W/O CHOLECYSTITIS W/O OBSTRUCTION SNOMED Code(s): 340119838 (3) Choledocholithiasis Narrative/Plan: Status post ERCP with stone extraction. Patient's symptoms improved, she denies any abdominal pain, nausea, or vomiting. However there was an increase in her LFTs. We'll repeat labs in the morning. Current Visit: Yes Status: Acute Code(s): K80.50 - CALCULUS OF BILE DUCT W/O CHOLANGITIS OR CHOLECYST W/O OBST SNOMED Code(s): 001170649 (4) Elevated liver enzymes Narrative/Plan: Slight increase in LFTs today, he shouldn't states she had a prior history of elevated LFTs about 2 years ago for which her PCP had been monitoring. She denies any underlying liver disease that she knows of, denies any history of hepatitis. Also states she was not sure what her PCP felt the elevation of her LFTs were related to. Underlying liver disease cannot be completely ruled out, we will continue to monitor LFTs. Current Visit: Yes Status: Acute Code(s): R74.8 - ABNORMAL LEVELS OF OTHER SERUM ENZYMES SNOMED Code(s): 119435017 Plan: 1. Advance to full liquid diet, advance as tolerated to low fat diet. 2. Repeat CMP in the morning 3. Patient is status post cholecystectomy 4. Patient is status post ERCP with stone extraction 5. Encourage ambulation Thank you for this consultation, we will continue to follow. Dr. Alondra Hansen I agree with the dictator's note, documented as a scribe by Vanessa Mcginnis
[2021-05-14 13:11] VITALS: BMI 33.5
--- NOTE | 2021-05-14 14:22 | P.PN ---
Subjective Progress Note Date: 05/14/21 CHIEF COMPLAINT: Abdominal pain HISTORY OF PRESENT ILLNESS: Surgical service is following in regards to arpit tiwari's acute gangrene cholecystitis with hydrops status post robotic cholecystectomy with drain placement. Patient did have elevated LFTs still after surgery. She had a RCA P completed and status post biliary stent enterotomy and balloon stone extraction by GI service. Patient reports improvement in her abdominal pain. She is tolerating a clear liquid diet. She reports having small bowel movements and passing gas. She denies any nausea or vomiting. MALU drain with serosanguineous output. Afebrile. WBC has normalized at 10.2 hemoglobin is 11.7 platelets are 172. Sodium 142 potassium is 3.5 and creatinine is 0.55 total bilirubin has gone up to 4.7 LFTs are increased as well. Patient does report that her urine is on the darker side. PHYSICAL EXAM: VITAL SIGNS: Reviewed GENERAL: Well-developed in no acute distress. HEENT: No sclera icterus. Extraocular movements grossly intact. Moist buccal mucosa. Head is atraumatic, normocephalic. Hears conversational speech. No nasal dr ainage. NECK: Supple without lymphadenopathy. CHEST: Non-labored respirations and equal bilateral excursions. CARDIOVASCULAR: Palpable 2+ radial pulses. ABDOMEN: Soft. Nondistended. Incision sites clean dry and intact. MALU drain with serous output MUSCULOSKELETAL: No clubbing or cyanosis. NEUROLOGIC: No focal or lateralizing signs. Cranial nerves II through XII grossly intact. PSYCH: Appropriate affect. Alert and oriented to person, place and time. SKIN: Well perfused. Good skin turgor. ASSESSMENT: 1. Acute gangrene cholecystitis with hydrops status post robotic cholecystectom y with drain placement 2. Hyperbilirubinemia 3. Elevated LFTs 3. History of left leg DVT anticoagulated with Xarelto 5. Borderline diabetic 6. History of abdominal lipoma requiring excision PLAN: -Hyperbilirubinemia defer to GI service -Continue antibiotics -Continue pain medication as needed -Encourage patient to ambulate -Encourage patient to use incentive spirometer Physician It Architecture Analyst note has been reviewed by physician. Signing provider agrees with the documented findings, assessment, and plan of care. Objective - Vital Signs Vital signs: Vital Signs Temp 98.1 F 05/14/21 08:00 Pulse 51 L 05/14/21 08:00 Resp 16 05/14/21 08:00 BP 164/76 05/14/21 08:00 Pulse Ox 95 05/14/21 08:00 Intake & Output 05/13/21 05/14/21 05/14/21 18:59 06:59 18:59 Intake Total 200 400 Output Total 20 20 Balance 180 380 Weight 83.007 kg Intake: IV 200 Intake, IV Titration 200 Amount Piperacillin-Tazobactam 3 200 .375 gm In Sodium Chloride 0.9% 100 ml @ 25 mls/hr IVPB Q8HR [facility] Rx# :[id number] Oral 200 Output: Drainage 20 20 Abdomen 20 20 Other: # Voids 1 1 1 # Bowel Movements 1 1 - Labs CBC & Chem 7: 05/14/21 08:55 05/14/21 08:55 Labs: Abnormal Lab Results - Last 24 Hours (Table) 05/14/21 Range/Units 08:55 Chloride 108 H (98-107) mmol/L Glucose 100 H (74-99) mg/dL Total Bilirubin 4.7 H (0.2-1.3) mg/dL AST 117 H (14-36) U/L ALT 123 H (4-34) U/L Alkaline Phosphatase 253 H (38-126) U/L Total Protein 5.9 L (6.3-8.2) g/dL Albumin 3.1 L (3.5-5.0) g/dL Microbiology - Last 24 Hours (Table) 05/11/21 12:25 Gram Stain - Preliminary Aspirate Body Fluid Culture - Preliminary Gram Neg Bacilli 05/08/21 23:50 Blood Culture - Preliminary Blood No Growth after 120 hours 05/08/21 23:35 Blood Culture - Preliminary Blood No Growth after 120 hours
[2021-05-14] MEDS ORDERED: Potassium Replacement Protocol 1 EACH MISC MISCELLANE PRN (16:34)
--- NOTE | 2021-05-14 16:37 | P.PN ---
Subjective Progress Note Date: 05/14/21 Margot Redmond is a 76 yo F with PMH of HTN, HLD, hx DVT on xarelto who presented to the ED complaining of continued R abdominal and flank pain over the past few weeks. She states this has been intermittent and over the past few days has become constant and severe. She also endorses nausea, no vomiting. Denies fever, chills dizziness. She denies dysuria. On presentation pt hypertensive, WBC 12.6, bilirubin 1.8, CT abd/pelvis with gallstones and wall thickening. 05/10/2021 NPO, scheduled for surgery today. Xarelto on hold. Maintained on Zosyn. Right upper quadrant tenderness. Denies chest pain, palpitations or shortness of breath. Afebrile, WBC within normal limits. Renal function stable. 05/13/2021 status post laparoscopic cholecystectomy secondary to acute gangrene cholecystitis with hydrops. Elevated LFTs/T bili postop. Scheduled for ERCP today. Reports outpatient she has a history of fluctuating elevated LFTs though on admission, LFTs within normal limits with mild elevated T bili 1.8. Denies chest pain, palpitations or shortness of breath. Minimal nausea. No bowel movement she reports since a week ago Thursday, passing flatus. Senokot initiated yesterday. T-max 100.1, labs pending. 05/14/2021 status post ERCP with balloon stone extraction, tolerated procedure well. Significant improvement in abdominal pain, passing flatus, small bowel movement. Tolerating full liquid diet with no nausea or vomiting. T bili and LFTs increased. Afebrile, normal WBC. Objective - Vital Signs Vital signs: Vital Signs Temp 98.1 F 05/14/21 08:00 Pulse 51 L 05/14/21 08:00 Resp 16 05/14/21 08:00 BP 164/76 05/14/21 08:00 Pulse Ox 95 05/14/21 08:00 Intake & Output 05/13/21 05/14/21 05/14/21 18:59 06:59 18:59 Intake Total 200 400 Output Total 20 20 Balance 180 380 Intake: IV 200 Intake, IV Titration 200 Amount Piperacillin-Tazobactam 3 200 .375 gm In Sodium Chloride 0.9% 100 ml @ 25 mls/hr IVPB Q8HR [facility] Rx# :[id number] Oral 200 Output: Drainage 20 20 Abdomen 20 20 Other: # Voids 1 1 # Bowel Movements 1 - Exam Gen: Alert and oriented 3, sitting up in chair ,NAD. Vitals reviewed HEENT: normocephalic, atraumatic, mucus membranes moist Neck: supple, no thyromegaly, no JVD CV: RRR, no murmur Lungs: normal effort, clear throughout Abd: soft, status post surgery tenderness, positive bowel sounds. MALU drain was minimal serosanguineous drainage. Neuro: no focal deficits Skin: warm and dry - Labs CBC & Chem 7: 05/14/21 08:55 05/14/21 08:55 Labs: Abnormal Lab Results - Last 24 Hours (Table) 05/14/21 Range/Units 08:55 Chloride 108 H (98-107) mmol/L Glucose 100 H (74-99) mg/dL Total Bilirubin 4.7 H (0.2-1.3) mg/dL AST 117 H (14-36) U/L ALT 123 H (4-34) U/L Alkaline Phosphatase 253 H (38-126) U/L Total Protein 5.9 L (6.3-8.2) g/dL Albumin 3.1 L (3.5-5.0) g/dL Microbiology - Last 24 Hours (Table) 05/08/21 23:50 Blood Culture - Preliminary Blood No Growth after 120 hours 05/08/21 23:35 Blood Culture - Preliminary Blood No Growth after 120 hours 05/11/21 12:25 Gram Stain - Preliminary Aspirate Body Fluid Culture - Preliminary Assessment and Plan Assessment: 1. Acute gangrene cholecystitis with hydrops, status post cholecystectomy. 2. Elevated LFTs post surgery. CHoledocholithiasis. Status post ERCP with stone extraction. 2. HTN. 3. HLD. 4.GERD. Plan: Continue on current medication regime ,monitoring and symptomatic treatment. Diet advancement as per surgery.Maintain antibiotics. Initially planned for discharge but LFTs increased today. Close monitoring of LFTs with repeat labs ordered for a.m. increase ambulation as tolerated. Aggressive pulmonary toileting with incentive spirometer ordered.Discharge planning pending improvement in LFTs, final DC recommendations and clearance from both GI and surgery. The impression and plan of care has been dictated as directed. : I performed a history and examination of this patient, discussed the same with the dictator. I agree with the dictator's note ,documented as a scribe. Any additional findings or plans will be noted.
[2021-05-14] MEDS: POTASSIUM CHLORIDE ER 20 MEQ TAB.ER PO SCH ×4 (16:59→22:02)
[2021-05-14] MEDS: ATORVASTATIN 20 MG TAB PO SCH (20:56)
[2021-05-14] MEDS: PANTOPRAZOLE 40 MG TABLET PO SCH (20:58)
[2021-05-15] MEDS: lisinopriL 20 MG TAB PO SCH (05:56)
[2021-05-15 07:23] LABS: ALT 98 U/L (4-34); AST 65 U/L (14-36); African American GFR (CKD) >90 (>60 ml/min/1.73 sqM); Albumin 2.8 g/dL (3.5-5.0); Alkaline Phosphatase 225 U/L (38-126); Anion Gap 5 mmol/L; Blood Urea Nitrogen 7 mg/dL (7-17); Calcium 8.7 mg/dL (8.4-10.2); Carbon Dioxide 26 mmol/L (22-30); Chloride 109 mmol/L (98-107); Glucose 103 mg/dL (74-99); Non-African American GFR(CKD) 88 (>60 ml/min/1.73 sqM); Sodium 140 mmol/L (137-145); Total Bilirubin 2.2 mg/dL (0.2-1.3); Total Protein 5.4 g/dL (6.3-8.2)
[2021-05-15] MEDS: PIPERACILLIN-TAZOBACTAM 3.375 GM in SODIUM CHLORIDE 0.9% 100 ML IVPB SCH ×3 (08:32→23:09)
[2021-05-15] MEDS: DOCUSATE 100 MG CAP PO SCH ×2 (08:32→21:06)
[2021-05-15] MEDS: HEPARIN SODIUM,PORCINE/PF 5,000 UNIT/0.5 ML SYRINGE SQ SCH ×2 (08:32→21:06)
[2021-05-15] MEDS: TRIAMCINOLONE 0.1% CREAM 80 GM TUBE TOPICAL SCH ×2 (08:33→21:42)
--- NOTE | 2021-05-15 10:40 | P.PN ---
Subjective Progress Note Date: 05/15/21 Principal diagnosis: Choledocholithiasis This is a 76-year-old female who presented to the emergency department with abdominal pain, she is status post robotic cholecystectomy on 05/11/2021. On her initial CT of the abdomen and ultrasound she had no evidence of dilation in her common bile duct. She continued to have elevation in her LFTs, and underwent ERCP yesterday with balloon sweep and stone extraction. The patient is seen and examined sitting up in the bedside chair. She states her abdominal pain has significantly improved. She states she is passing gas and had a small bowel movement this morning. Liver enzymes are trending down. She is tolerating a full liquid diet. Denies any nausea or vomiting. Patient states she has had elevation in her liver enzymes in the past, about two years ago for which PCP had been monitoring. She denies history of liver disease, hepatitis and states she was not sure what PCP thought was causing elevated liver enzymes. Small amount of serosanguineous fluid from MALU drain. Objective - Vital Signs Vital signs: Vital Signs Temp 97.8 F 05/15/21 05:55 Pulse 61 05/15/21 06:53 Resp 18 05/15/21 05:55 BP 173/72 05/15/21 06:53 Pulse Ox 98 05/15/21 05:55 Intake & Output 05/14/21 05/15/21 05/15/21 18:59 06:59 18:59 Intake Total 120 270 Output Total 10 Balance 110 270 Weight 83.007 kg Intake: Oral 120 270 Output: Drainage 10 Abdomen 10 Other: Voiding Method Toilet # Voids 1 1 # Bowel Movements 1 1 - Exam General appearance: The patient is alert, oriented, appears in no acute distress. HET: Head is normocephalic and atraumatic. Conjunctiva pink. Sclera anicteric. Neck: Supple without lymphadenopathy. Abdomen: Soft, nontender, incision sites clean dry and intact, MALU drain, has some swelling in the right upper quadrant just above the incision site where she had previous skin graft, nondistended with bowel sounds. No guarding or rigidity. Extremities: Normal skin color and turgor. No pedal edema Skin: No rashes, no jaundice Neurological: No focal deficits. Alert and oriented 3. - Labs CBC & Chem 7: 05/14/21 08:55 05/15/21 06:47 Labs: Abnormal Lab Results - Last 24 Hours (Table) 05/14/21 05/15/21 Range/Units 08:55 06:47 Chloride 108 H 109 H (98-107) mmol/L Glucose 100 H 103 H (74-99) mg/dL Total Bilirubin 4.7 H 2.2 H (0.2-1.3) mg/dL AST 117 H 65 H (14-36) U/L ALT 123 H 98 H (4-34) U/L Alkaline Phosphatase 253 H 225 H (38-126) U/L Total Protein 5.9 L 5.4 L (6.3-8.2) g/dL Albumin 3.1 L 2.8 L (3.5-5.0) g/dL Microbiology - Last 24 Hours (Table) 05/08/21 23:50 Blood Culture - Final Blood No Growth after 144 hours 05/08/21 23:35 Blood Culture - Final Blood No Growth after 144 hours 05/11/21 12:25 Gram Stain - Preliminary Aspirate Body Fluid Culture - Preliminary Gram Neg Bacilli Assessment and Plan (1) Abdominal pain Narrative/Plan: This is a 76-year-old female who presented to the emergency department 2 days ago with right flank, abdominal, and back pain which she reported as sharp and associated with nausea but no vomiting. Her initial blood work showed mild elevation in her total bilirubin at 1.8, all other LFTs unremarkable. She was afebrile. She underwent a CT of the abdomen and pelvis which showed evidence of cholelithiasis and a dilated gallbladder which is change from old exam, cholecystitis possible. Sigmoid diverticulosis without diverticulitis. Common bile duct is not dilated. On today's labs she had a mild elevation in her total bilirubin at 2.7, alkaline phosphatase 106, AST 29, ALT 22. Patient reports her abdominal pain has improved significantly, she denies any nausea or vomiting. Still has some mild discomfort in her lower abdomen. He ultrasound of the gallbladder was ordered today which shows evidence of cholelithiasis with small amount of. Clear cystic fluid, borderline enlarged liver. No CBD dilation, CBD measured at 0.6 cm. Mild elevation in total bilirubin can be related to possib le cholecystitis. There was low suspicion for choledochalithiasis. Patient underwent cholecystectomy, 05/11/2021. She was then noted to have an increase in her LFTs, and underwent ERCP yesterday with stone extraction. Abdominal pain improved. Current Visit: Yes Status: Acute Code(s): R10.9 - UNSPECIFIED ABDOMINAL PAIN SNOMED Code(s): 37670232 (2) Cholelithiasis Narrative/Plan: Status post cholecystectomy Current Visit: Yes Status: Acute Code(s): K80.20 - CALCULUS OF GALLBLADDER W/O CHOLECYSTITIS W/O OBSTRUCTION SNOMED Code(s): 690563973 (3) Choledocholithiasis Narrative/Plan: Status post ERCP with stone extraction. Patient's symptoms improved, she denies any abdominal pain, nausea, or vomiting. However there was an increase in her LFTs. We'll repeat labs in the morning. Current Visit: Yes Status: Acute Code(s): K80.50 - CALCULUS OF BILE DUCT W/O CHOLANGITIS OR CHOLECYST W/O OBST SNOMED Code(s): 885765733 (4) Elevated liver enzymes Narrative/Plan: Slight increase in LFTs today, he shouldn't states she had a prior history of elevated LFTs about 2 years ago for which her PCP had been monitoring. She denies any underlying liver disease that she knows of, denies any history of hepatitis. Also states she was not sure what her PCP felt the elevation of her LFTs were related to. Underlying liver disease cannot be completely ruled out, we will continue to monitor LFTs. LFTs trending down, total bilirubin 2.2, alkaline phosphatase 225, AST 65, ALT 98 Current Visit: Yes Status: Acute Code(s): R74.8 - ABNORMAL LEVELS OF OTHER SERUM ENZYMES SNOMED Code(s): 905325260 Plan: 1. Advance to low-fat diet 2. Repeat CMP in 3-5 days, outpatient prescription ordered 3. Patient is status post cholecystectomy 4. Patient is status post ERCP with stone extraction 5. Encourage ambulation 6. Patient is cleared for discharge from gastroenterology, follow up next week to trend liver enzymes. Thank you for this consultation, we will continue to follow Dr. Alondra Hansen I agree with the dictator's note, documented as a scribe by Vanessa Castanon.
--- NOTE | 2021-05-15 11:13 | P.PN ---
Subjective Progress Note Date: 05/15/21 CHIEF COMPLAINT: Abdominal pain HISTORY OF PRESENT ILLNESS: Surgical service is following in regards to arpit tiwari's acute gangrene cholecystitis with hydrops status post robotic cholecystectomy with drain placement. Patient did have elevated LFTs still after surgery. She had an ERCP completed and status post biliary stent enterotomy and balloon stone extraction by GI service. Patient reports improvement in her abdominal pain. She is tolerating full liquid diet. Her LFTs and bilirubin are trending downwards. She's afebrile. PHYSICAL EXAM: VITAL SIGNS: Reviewed GENERAL: Well-developed in no acute distress. HEENT: No sclera icterus. Extraocular movements grossly intact. Moist buccal mucosa. Head is atraumatic, normocephalic. Hears conversational speech. No nasal drainage. NECK: Supple without lymphadenopathy. CHEST: Non-labored respirations and equal bilateral excursions. CARDIOVASCULAR: Palpable 2+ radial pulses. ABDOMEN: Soft. Nondistended. Incision sites clean dry and intact. MALU drain with serous output MUSCULOSKELETAL: No clubbing or cyanosis. NEUROLOGIC: No focal or lateralizing signs. Cranial nerves II through XII grossly intact. PSYCH: Appropriate affect. Alert and oriented to person, place and time. SKIN: Well perfused. Good skin turgor. ASSESSMENT: 1. Acute gangrene cholecystitis with hydrops status post robotic cholecystectomy with drain placement 2. Hyperbilirubinemia 3. Elevated LFTs 3. History of left leg DVT anticoagulated with Xarelto 5. Borderline diabetic 6. History of abdominal lipoma requiring excision PLAN: -Patient is stable from surgical standpoint for discharge -Continue low-fat diet -Patient to be discharged home with MALU drain -Okay for patient to resume Xarelto from surgical standpoint -Hyperbilirubinemia and elevated LFTs GI service is repeating blood work outpatient Physician Business Solutions Consultant note has been reviewed by physician. Signing provider agrees with the documented findings, assessment, and plan of care. Objective - Vital Signs Vital signs: Vital Signs Temp 98.2 F 05/15/21 08:00 Pulse 96 05/15/21 08:00 Resp 16 05/15/21 08:00 BP 176/80 05/15/21 08:00 Pulse Ox 96 05/15/21 08:00 Intake & Output 05/14/21 05/15/21 05/15/21 18:59 06:59 18:59 Intake Total 120 270 Output Total 10 Balance 110 270 Weight 83.007 kg Intake: Oral 120 270 Output: Drainage 10 Abdomen 10 Other: Voiding Method Toilet # Voids 1 1 # Bowel Movements 1 1 - Labs CBC & Chem 7: 05/14/21 08:55 05/15/21 06:47 Labs: Abnormal Lab Results - Last 24 Hours (Table) 05/15/21 Range/Units 06:47 Chloride 109 H (98-107) mmol/L Glucose 103 H (74-99) mg/dL Total Bilirubin 2.2 H (0.2-1.3) mg/dL AST 65 H (14-36) U/L ALT 98 H (4-34) U/L Alkaline Phosphatase 225 H (38-126) U/L Total Protein 5.4 L (6.3-8.2) g/dL Albumin 2.8 L (3.5-5.0) g/dL Microbiology - Last 24 Hours (Table) 05/11/21 12:25 Gram Stain - Final Aspirate Body Fluid Culture - Final Klebsiella oxytoca 05/08/21 23:50 Blood Culture - Final Blood No Growth after 144 hours 05/08/21 23:35 Blood Culture - Final Blood No Growth after 144 hours
[2021-05-15] MEDS: hydroCHLOROthiazide 12.5 MG CAP PO SCH (11:22)
[2021-05-15] MEDS: ACETAMINOPHEN TAB 325 MG TAB PO PRN (12:22)
[2021-05-15] MEDS: ATORVASTATIN 20 MG TAB PO SCH (21:00)
[2021-05-15] MEDS: PANTOPRAZOLE 40 MG TABLET PO SCH (21:06)
--- NOTE | 2021-05-15 21:43 | P.DS ---
Providers Date of admission: 05/09/21 14:52 Expected date of discharge: 05/15/21 Attending physician: Dante Jeffers MD Consults: 05/08/21 23:10 Consult Physician Routine Consulting Provider: Annie Montesinos Consult Reason/Comments: cholecystitis Do you want consulting provider notified?: Already Contacted 05/10/21 13:48 Consult Physician Urgent Consulting Provider: Uday Carcamo Consult Reason/Comments: CBD obstruction Do you want consulting provider notified?: Yes Primary care physician: Harini Jeffers [facility] Course: Hospital course:Margot Redmond is a 76 yo F with PMH of HTN, HLD, hx DVT on xarelto who presented to the ED complaining of continued R abdominal and flank pain over the past few weeks. She states this has been intermittent and over the past few days has become constant and severe. She also endorses nausea, no vomiting. Denies fever, chills dizziness. She denies dysuria. On presentation pt hypertensive, WBC 12.6, bilirubin 1.8, CT abd/pelvis with gallstones and wall thickening. 05/10/2021 NPO, scheduled for surgery today. Xarelto on hold. Maintained on Zosyn. Right upper quadrant tenderness. Denies chest pain, palpitations or shortness of breath. Afebrile, WBC within normal limits. Renal function stable. 05/13/2021 status post laparoscopic cholecystectomy secondary to acute gangrene cholecystitis with hydrops. Elevated LFTs/T bili postop. Scheduled for ERCP today. Reports outpatient she has a history of fluctuating elevated LFTs though on admission, LFTs within normal limits with mild elevated T bili 1.8. Denies chest pain, palpitations or shortness of breath. Minimal nausea. No bowel movement she reports since a week ago Thursday, passing flatus. Senokot initiated yesterday. T-max 100.1, labs pending. 05/14/2021 status post ERCP with balloon stone extraction, tolerated procedure well. Significant improvement in abdominal pain, passing flatus, small bowel movement. Tolerating full liquid diet with no nausea or vomiting. T bili and LFTs increased. Afebrile, normal WBC. 05/15/2021 T bili/LFTs trending down, T bili down to 2.2. Denies pain, positive mild surgical tenderness. Positive flatus. Tolerating full liquid diet advancement with no nausea vomiting or diarrhea. Hypertensive, patient has received significant amount of IV fluids during this hospital stay. Hydrochlorothiazide added to med regimen for discharge. Afebrile, normal WBC. Renal function stable. Body fluid culture reporting Klebsiella oxytoca, rare quantity, anaerobic culture finalizing. Patient will be discharged home today pending final culture results, in a stable condition with guarded prognosis. Close monitoring of T bili/LFTs with outpatient CMP in 3 days. - Exam Gen: Alert and oriented 3, sitting up in chair ,NAD. Vitals reviewed HEENT: normocephalic, atraumatic, no sclera icterus. mucus membranes moist Neck: supple, no thyromegaly, no JVD CV: RRR, no murmur Lungs: normal effort, clear throughout Abd: soft, status post surgery tenderness, positive bowel sounds. Laparoscopic sites clean dry and intact. MALU drain was minimal serous drainage. Neuro: no focal deficits Skin: warm and dry Microbiology 05/11/21 12:25 Aspirate Anaerobic Culture - Preliminary 05/11/21 12:25 Aspirate Gram Stain - Final 05/11/21 12:25 Aspirate Body Fluid Culture - Final Klebsiella oxytoca 05/08/21 23:50 Blood Blood Culture - Final No Growth after 144 hours 05/08/21 23:35 Blood Blood Culture - Final No Growth after 144 hours The impression and plan of care has been dictated as directed. : I performed a history and examination of this patient, discussed the same with the dictator. I agree with the dictator's note ,documented as a scribe. Any additional findings or plans will be noted. Patient Condition at Discharge: Stable Plan - Discharge Summary Discharge Rx Participant: No New Discharge Prescriptions: New hydroCHLOROthiazide [Hydrodiuril] 12.5 mg PO DAILY #30 cap Sennosides [Senokot] 8.6 mg PO BID PRN tab PRN Reason: Constipation Continue Simvastatin [Zocor] 40 mg PO HS Omeprazole 40 mg PO HS Magnesium Gluconate [Magonate] 500 mg PO Q48H Cinnamon Bark [Cinnamon] 1,000 mg PO DAILY L.acidoph,Paracasei, B.lactis [Probiotic] 1 cap PO DAILY Multivit with Calcium,Iron,Min [Women's Daily Multivitamin] 1 tab PO DAILY Triamcinolone 0.025% Cream [Kenalog 0.025% Cream] 1 applic TOPICAL BID Cholecalciferol [Vitamin D3 (25 Mcg = 1000 Iu)] 50 mcg PO DAILY lisinopriL 40 mg PO DAILY Potassium Chloride [Klor-Con 20] 20 meq PO DAILY metFORMIN HCL [Glucophage] 500 mg PO DAILY Rivaroxaban [Xarelto] 20 mg PO HS Ferrous Sulfate [Feosol] 325 mg PO Q4D Discharge Medication List Omeprazole 40 mg PO HS 08/19/14 [History] Simvastatin [Zocor] 40 mg PO HS 08/19/14 [History] Cinnamon Bark [Cinnamon] 1,000 mg PO DAILY 05/28/16 [History] L.acidoph,Paracasei, B.lactis [Probiotic] 1 cap PO DAILY 05/28/16 [History] Magnesium Gluconate [Magonate] 500 mg PO Q48H 05/28/16 [History] Multivit with Calcium,Iron,Min [Women's Daily Multivitamin] 1 tab PO DAILY 05/28/16 [History] Cholecalciferol [Vitamin D3 (25 Mcg = 1000 Iu)] 50 mcg PO DAILY 05/08/21 [History] Ferrous Sulfate [Feosol] 325 mg PO Q4D 05/08/21 [History] Potassium Chloride [Klor-Con 20] 20 meq PO DAILY 05/08/21 [History] Rivaroxaban [Xarelto] 20 mg PO HS 05/08/21 [History] Triamcinolone 0.025% Cream [Kenalog 0.025% Cream] 1 applic TOPICAL BID 05/08/21 [History] lisinopriL 40 mg PO DAILY 05/08/21 [History] metFORMIN HCL [Glucophage] 500 mg PO DAILY 05/08/21 [History] Sennosides [Senokot] 8.6 mg PO BID PRN tab 05/15/21 [Rx] hydroCHLOROthiazide [Hydrodiuril] 12.5 mg PO DAILY #30 cap 05/15/21 [Rx] Follow up Appointment(s)/Referral(s): [facility], [NON-STAFF] - 1-2 Days Harini Jeffers DO [Primary Care Provider] - 05/17/21 (For labwork ) Annie Montesinos MD [STAFF PHYSICIAN] - 05/21/21 Carina Modi NPC [Nurse Practitioner] - 06/12/21 11:00 am (If labwork comes back normal, appt can be cancelled.) Ambulatory/Diagnostic Orders: Comprehensive Metabolic Panel [LAB.AMB] Location: None Selected Activity/Diet/Wound Care/Special Instructions: Pending final anaerobic culture results ,DC recommendations/clearance per surgery Keep a log of MALU drain output and bring with you to your follow-up appointment Milk/strip drains 2-3 times a day
[2021-05-16 08:25] LABS: ALT 76 U/L (4-34); AST 43 U/L (14-36); African American GFR (CKD) >90 (>60 ml/min/1.73 sqM); Albumin 3.1 g/dL (3.5-5.0); Alkaline Phosphatase 215 U/L (38-126); Anion Gap 7 mmol/L; Blood Urea Nitrogen 5 mg/dL (7-17); Carbon Dioxide 27 mmol/L (22-30); Chloride 106 mmol/L (98-107); Glucose 130 mg/dL (74-99); Non-African American GFR(CKD) 87 (>60 ml/min/1.73 sqM); Potassium 3.8 mmol/L (3.5-5.1); Sodium 140 mmol/L (137-145); Total Bilirubin 1.3 mg/dL (0.2-1.3); Total Protein 5.7 g/dL (6.3-8.2)
[2021-05-16] MEDS: PIPERACILLIN-TAZOBACTAM 3.375 GM in SODIUM CHLORIDE 0.9% 100 ML IVPB SCH (08:36)
[2021-05-16] MEDS: hydroCHLOROthiazide 12.5 MG CAP PO SCH (08:39)
[2021-05-16] MEDS: lisinopriL 20 MG TAB PO SCH (08:39)
[2021-05-16] MEDS: HEPARIN SODIUM,PORCINE/PF 5,000 UNIT/0.5 ML SYRINGE SQ SCH (08:39)
[2021-05-16] MEDS: DOCUSATE 100 MG CAP PO SCH (08:39)
[2021-05-16] MEDS: TRIAMCINOLONE 0.1% CREAM 80 GM TUBE TOPICAL SCH (08:40)
[2021-05-16 08:43] VITALS: BP 175/82; PULSE 63; RESP 18; TEMP 98.3
--- NOTE | 2021-05-16 11:24 | P.PN ---
<SabinojuanChristina - Last Filed: 05/16/21 11:22> Subjective Progress Note Date: 05/16/21 CHIEF COMPLAINT: Abdominal pain HISTORY OF PRESENT ILLNESS: Surgical service is following in regards to patient's acute gangrene cholecystitis with hydrops status post robotic cholecystectomy with drain placement. Patient did have elevated LFTs still after surgery. She had an ERCP completed and status post biliary stent enterotomy and balloon stone extraction by GI service. She denies any abdominal pain. She's tolerating low-fat diet. Her LFTs are trending down. Total bilirubin has normalized. She's afebrile. MALU drain with serous output about 25 mL's. PHYSICAL EXAM: VITAL SIGNS: Reviewed GENERAL: Well-developed in no acute distress. HEENT: No sclera icterus. Extraocular movements grossly intact. Moist buccal mucosa. Head is atraumatic, normocephalic. Hears conversational speech. No nasal drainage. NECK: Supple without lymphadenopathy. CHEST: Non-labored respirations and equal bilateral excursions. CARDIOVASCULAR: Palpable 2+ radial pulses. ABDOMEN: Soft. Nondistended. Incision sites clean dry and intact. MALU drain with serous output MUSCULOSKELETAL: No clubbing or cyanosis. NEUROLOGIC: No focal or lateralizing signs. Cranial nerves II through XII grossly intact. PSYCH: Appropriate affect. Alert and oriented to person, place and time. SKIN: Well perfused. Good skin turgor. ASSESSMENT: 1. Acute gangrene cholecystitis with hydrops status post robotic cholecystectomy with drain placement 2. Hyperbilirubinemia 3. Elevated LFTs 3. History of left leg DVT anticoagulated with Xarelto 5. Borderline diabetic 6. History of abdominal lipoma requiring excision PLAN: -Patient is stable from surgical standpoint for discharge -Continue low-fat diet -Patient to be discharged home with MALU drain -Okay for patient to resume Xarelto from surgical standpoint -Hyperbilirubinemia and elevated LFTs followed by GI service. GI service is repeating blood work outpatient Physician Software Quality Assurance Engineer note has been reviewed by physician. Signing provider agrees with the documented findings, assessment, and plan of care. Objective - Vital Signs Vital signs: Vital Signs Temp 98.3 F 05/16/21 08:05 Pulse 63 05/16/21 08:05 Resp 18 05/16/21 08:05 BP 175/82 05/16/21 08:05 Pulse Ox 97 07/01/21 08:05 Intake & Output 05/15/21 05/16/21 05/16/21 18:59 06:59 18:59 Intake Total 500 Output Total 15 15 Balance 485 -15 Intake: Oral 500 Output: Drainage 15 15 Abdomen 15 15 Other: # Voids 3 3 - Labs CBC & Chem 7: 05/14/21 08:55 05/16/21 07:53 Labs: Abnormal Lab Results - Last 24 Hours (Table) 05/16/21 Range/Units 07:53 BUN 5 L (7-17) mg/dL Glucose 130 H (74-99) mg/dL AST 43 H (14-36) U/L ALT 76 H (4-34) U/L Alkaline Phosphatase 215 H (38-126) U/L Total Protein 5.7 L (6.3-8.2) g/dL Albumin 3.1 L (3.5-5.0) g/dL Microbiology - Last 24 Hours (Table) 05/11/21 12:25 Anaerobic Culture - Preliminary Aspirate 05/11/21 12:25 Gram Stain - Final Aspirate Body Fluid Culture - Final Klebsiella oxytoca <Annie Montesinos N - Last Filed: 05/16/21 12:29> Subjective Patient seen and evaluated. MALU in the office. Stable for discharge. Objective - Vital Signs Vital signs: Vital Signs Temp 98.3 F 05/16/21 08:05 Pulse 63 05/16/21 08:05 Resp 18 05/16/21 08:05 BP 175/82 05/16/21 08:05 Pulse Ox 97 05/16/21 08:05 Intake & Output 05/15/21 05/16/21 05/16/21 18:59 06:59 18:59 Intake Total 500 Output Total 15 15 Balance 485 -15 Intake: Oral 500 Output: Drainage 15 15 Abdomen 15 15 Other: # Voids 3 3 - Labs CBC & Chem 7: 05/14/21 08:55 05/16/21 07:53 Labs: Abnormal Lab Results - Last 24 Hours (Table) 05/16/21 Range/Units 07:53 BUN 5 L (7-17) mg/dL Glucose 130 H (74-99) mg/dL AST 43 H (14-36) U/L ALT 76 H (4-34) U/L Alkaline Phosphatase 215 H (38-126) U/L Total Protein 5.7 L (6.3-8.2) g/dL Albumin 3.1 L (3.5-5.0) g/dL Microbiology - Last 24 Hours (Table) 05/11/21 12:25 Anaerobic Culture - Preliminary Aspirate 05/11/21 12:25 Gram Stain - Final Aspirate Body Fluid Culture - Final Klebsiella oxytoca
--- NOTE | 2021-05-16 15:02 | PN ---
PROGRESS NOTE DATE OF SERVICE: May 16, 2021 Patient is a 76-year-old pleasant white female admitted to hospital with acute cholecystitis and elevated LFTs. She underwent laparoscopic cholecystectomy 4 days ago and ERCP for elevated LFTs and jaundice 3 days ago and CBD stone was extracted. The patient is gradually improving. Overall she is feeling well. She is going to be discharged home today. PHYSICAL EXAMINATION: Appears comfortable. Vital signs stable. Blood pressure 175/82, pulse is 63, temperature 98.3. HEENT examination unremarkable. Conjunctivae pink. Sclerae anicteric. Oral cavity no lesions. Neck: No JVD or lymph node enlargement. Chest was clear to auscultation. Heart: Regular rate and rhythm. Abdomen: Soft, nontender. Bowel sounds are positive. Extremities: No pedal edema. Neuro: She is alert and oriented x3. No focal deficits. LABS: From today: T-bilirubin is normal at 1.3. AST and ALT are 43 and 76 respectively. Alk phos is 215. IMPRESSION: 1. Choledocholithiasis status post ERCP with CBD stone removal 3 days ago. She is doing well. 2. Elevated LFTs, gradually improving. Possibility of underlying chronic liver disease cannot be excluded. 3. Status post gallbladder surgery 4 days ago. Patient clinically doing well. RECOMMENDATIONS: She can be discharged home. She was advised to have repeat labs done within a week and if they are still elevated, she can follow up in office for further management. Thank you for this consultation. MMODL / IJN: [id number] /
== END 2021-05-16 13:42 | disposition home or self-care (01) | DRG 418 ==
LOC: EC 20:07 → 6NMEDSUR 23:31 → OBSVTOIN 05-09 14:52 → 6PED 05-13 20:43
PROVIDERS: ADMIT Family Medicine; ATTEND Family Medicine
PROC: 8E0W4CZ Robotic Assisted Procedure of Trunk Region, Percutaneous Endoscopic Approach (ICD-10-PCS; principal; 2021-05-11 09:25)
PROC: 0FT44ZZ Resection of Gallbladder, Percutaneous Endoscopic Approach (ICD-10-PCS; principal; 2021-05-11 09:25)
PROC: 0FC98ZZ Extirpation of Matter from Common Bile Duct, Via Natural or Artificial Opening Endoscopic (ICD-10-PCS; 2021-05-13 07:30)
DX: K80.63 Calculus of gallbladder and bile duct with acute cholecystitis with obstruction (principal); K82.1 Hydrops of gallbladder; K76.9 Liver disease, unspecified; M16.12 Unilateral primary osteoarthritis, left hip; R73.03 Prediabetes; L30.9 Dermatitis, unspecified; K57.30 Diverticulosis of large intestine without perforation or abscess without bleeding; D69.6 Thrombocytopenia, unspecified; E78.5 Hyperlipidemia, unspecified; F32.9 Major depressive disorder, single episode, unspecified; H91.90 Unspecified hearing loss, unspecified ear; I10 Essential (primary) hypertension; K21.9 Gastro-esophageal reflux disease without esophagitis; Z20.822 Contact with and (suspected) exposure to COVID-19; K82.A1 Gangrene of gallbladder in cholecystitis; Z79.01 Long term (current) use of anticoagulants; Z79.82 Long term (current) use of aspirin; Z79.84 Long term (current) use of oral hypoglycemic drugs; Z79.899 Other long term (current) drug therapy; Z82.49 Family history of ischemic heart disease and other diseases of the circulatory system; Z86.718 Personal history of other venous thrombosis and embolism; Z80.0 Family history of malignant neoplasm of digestive organs; Z88.5 Allergy status to narcotic agent; Z88.8 Allergy status to other drugs, medicaments and biological substances; Z88.6 Allergy status to analgesic agent; Z91.040 Latex allergy status
CPT/HCPCS: 36415; 43262; 43264; 74176; 74330; 76705; 80053; 81003; 82150; 82247; 83605; 83690; 84132; 85025; 85027; 85610; 87040; 87070; 87075; 87077; 87186; 87205; 87635; 88304; 93005; 93306; 96361; 96374; 96375; 99285

== ENCOUNTER → 2021-08-22 | Outpatient (CLI) | payer MEDICARE ==
--- NOTE | 2021-08-27 09:59 | MM ---
Reason for exam: screening (asymptomatic). Last mammogram was performed 2 years and 3 months ago. History: Patient is postmenopausal and is nulliparous. Took estrogen for 4 years beginning at age 56. Took progesterone for 4 years beginning at age 56. Physical Findings: A clinical breast exam by your physician is recommended on an annual basis and results should be correlated with mammographic findings. MG 3D Screening Mammo W/Cad Bilateral CC and MLO view(s) were taken. Prior study comparison: June 01, 2019, bilateral MG 3d screening mammo w/cad. January 20, 2018, bilateral MG 3d screening mammo w/cad. November 22, 2015, left breast MG 3d work up w/cad LT. November 07, 2015, bilateral MG screening mammo w CAD. There are scattered fibroglandular densities. Some fluctuating nodularity in the left breast likely underlying cysts. 6 month follow up recommended. ASSESSMENT: Probably benign, BI-RAD 3 RECOMMENDATION: Follow-up diagnostic mammogram of the left breast in 6 months.
== END | disposition home or self-care (01) ==
LOC: RADMAMWWP 14:27
PROVIDERS: ATTEND Family Medicine
DX: Z12.31 Encounter for screening mammogram for malignant neoplasm of breast (principal)
CPT/HCPCS: 77063; 77067

== ENCOUNTER → 2023-03-26 | Outpatient (CLI) | payer MEDICARE ==
--- NOTE | 2023-03-26 14:45 | MM ---
Reason for Exam: Clinical finding. Last mammogram was performed 1 year(s) and 7 month(s) ago. Patient History: Menarche at age 11. Patient has no children. Postmenopausal. Estrogen for 4 years from age 56 until age 60. Progesterone for 4 years from age 56 until age 60. Risk Values: Maggy 5 year model risk: 1.9%. NCI Lifetime model risk: 3.1%. Prior Study Comparison: 06/01/2019 Bilateral Screening Mammogram, [facility]. 08/22/2021 Bilateral Screening Mammogram, [facility]. 03/25/2022 Left Diagnostic Mammogram, [facility]. Tissue Density: Left: There are scattered fibroglandular densities. Findings: Analyzed By CAD. Chronic bilateral low density nodularity. No significant change from prior exams. Overall Assessment: Benign, BI-RAD 2 Management: Screening Mammogram of both breasts in 1 year. . Results were given to the patient verbally at the time of exam. Patient should continue monthly self-breast exams. A clinical breast exam by your physician is recommended on an annual basis. This exam should not preclude additional follow-up of suspicious palpable abnormalities. Note on Maggy scores and lifetime risk: 1. A Maggy score greater than 3% is considered moderate risk. If this is the case, consider specialist referral to assess eligibility for a risk reducing agent. 2. If overall lifetime risk for the development of breast cancer is 20% or higher, the patient may qualify for future screening with alternating mammogram and breast MRI. Electronically signed and approved by: Janien Mcgowan M.D. Radiologist [id number]
== END | disposition home or self-care (01) ==
LOC: RADMAMWWP 14:06
PROVIDERS: ATTEND Family Medicine
DX: R92.8 Other abnormal and inconclusive findings on diagnostic imaging of breast (principal); Z78.0 Asymptomatic menopausal state
CPT/HCPCS: 77066; G0279; 77062

== ENCOUNTER → 2023-06-25 | Outpatient (CLI) | payer MEDICARE ==
[2023-06-25 17:07] LABS: Basophils # (A) 0.08 X 10*3/uL (0.00-0.10); Basophils % (A) 0.9 %; Eosinophils # (A) 0.38 X 10*3/uL (0.04-0.35); Eosinophils % (A) 4.2 %; HCT 38.1 % (37.2-46.3); HGB 12.2 d/dL (12.0-15.0); Lymphocytes # (A) 3.01 X 10*3/uL (0.90-5.00); Lymphocytes % (A) 33.6 %; MCH 26.5 pg (27.0-32.0); MCV 82.6 FL (80.0-97.0); Mean Platelet Volume 11.8 FL (9.5-12.2); Monocytes # (A) 0.82 X 10*3/uL (0.20-1.00); Monocytes % (A) 9.1 %; NRBC Per 100 WBC 0 X 10*3/uL (0.00-0.01); Neutrophils # (A) 4.65 X 10*3/uL (1.80-7.70); Neutrophils % (A) 51.9 %; Platelet Count 181 X 10*3/uL (140-440); RBC 4.61 X 10*6/uL (4.10-5.20); WBC 8.97 X 10*3/uL (4.50-10.00)
[2023-06-25 17:12] LABS: Prealbumin 28.2 mg/dL (18.0-42.0)
[2023-06-25 17:21] LABS: ALT 19 U/L (8-44); AST 21 U/L (13-35); Albumin 4.2 d/dL (3.8-4.9); Albumin/Globulin Ratio 1.75 Ratio (1.60-3.17); Alkaline Phosphatase 123 U/L (41-126); Blood Urea Nitrogen 18.3 mg/dL (9.0-27.0); C Reactive Protein <0.30 mg/dL (0.00-0.80); Calcium 9.6 mg/dL (8.7-10.3); Carbon Dioxide 25.8 mmol/L (21.6-31.8); Chloride 103 mmol/L (96-109); Erythrocyte Sedimentation Rate 9 mm/Hr (0-30); Globulin 2.4 d/dL (1.6-3.3); Glucose 93 mg/dL (70-110); Potassium 4.6 mmol/L (3.5-5.5); Sodium 141 mmol/L (135-145); Total Bilirubin 1.4 mg/dL (0.3-1.2); Total Protein 6.6 d/dL (6.2-8.2)
== END | disposition home or self-care (01) ==
LOC: LABWHC1 09:48
PROVIDERS: ATTEND Family Medicine
DX: E11.622 Type 2 diabetes mellitus with other skin ulcer (principal); L97.325 Non-pressure chronic ulcer of left ankle with muscle involvement without evidence of necrosis; I87.312 Chronic venous hypertension (idiopathic) with ulcer of left lower extremity; Z79.01 Long term (current) use of anticoagulants
CPT/HCPCS: 36415; 80053; 84134; 85025; 85652; 86140

== ENCOUNTER 2023-07-31 04:39 | Emergency (ER) | payer MEDICARE ==
[2023-07-31 04:47] VITALS: BP 185/94; PULSE 61; RESP 18; TEMP 97.9
[2023-07-31] MEDS ORDERED: ORPHENADRINE 30 MG/ML 2 ML VIAL IM STA (05:11)
[2023-07-31] MEDS ORDERED: KETOROLAC 15 MG/ML 1 ML VIAL IM STA (05:11)
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
[2023-07-31] MEDS ORDERED: LIDOCAINE 5% PATCH TOPICAL SCH (09:00)
== END 2023-07-31 06:46 | disposition home or self-care (01) ==
LOC: EC 04:39
DX: M54.12 Radiculopathy, cervical region (principal); I10 Essential (primary) hypertension; E78.5 Hyperlipidemia, unspecified; K21.9 Gastro-esophageal reflux disease without esophagitis; Z79.899 Other long term (current) drug therapy; Z88.5 Allergy status to narcotic agent; Z88.6 Allergy status to analgesic agent; Z88.8 Allergy status to other drugs, medicaments and biological substances; Z91.040 Latex allergy status
CPT/HCPCS: 99283; 96372 ×2; J2360; J1885

== ENCOUNTER → 2024-09-06 | Outpatient (CLI) | payer MEDICARE ==
--- NOTE | 2024-09-08 17:28 | MM ---
Reason for Exam: Screening (asymptomatic). Last mammogram was performed 3 year(s) and 0 month(s) ago. Patient History: Menarche at age 11. Patient has no children. Postmenopausal. Estrogen for 4 years from age 56 until age 60. Progesterone for 4 years from age 56 until age 60. Risk Values: Maggy 5 year model risk: 1.8%. NCI Lifetime model risk: 2.8%. Prior Study Comparison: 08/22/2021 Bilateral Screening Mammogram, [facility]. 03/25/2022 Left Diagnostic Mammogram, [facility]. 03/26/2023 Bilateral MG 3D diag mammo w/cad [facility], [facility]. Tissue Density: There are scattered areas of fibroglandular density. Findings: Analyzed By CAD. Chronic bilateral low density nodularity. There is no suspicious group of microcalcifications or new suspicious mass in either breast. Overall Assessment: Benign, BI-RAD 2 Management: Screening Mammogram of both breasts in 1 year. . Patient should continue monthly self-breast exams. A clinical breast exam by your physician is recommended on an annual basis. This exam should not preclude additional follow-up of suspicious palpable abnormalities. Note on Maggy scores and lifetime risk: 1. A Maggy score greater than 3% is considered moderate risk. If this is the case, consider specialist referral to assess eligibility for a risk reducing agent. 2. If overall lifetime risk for the development of breast cancer is 20% or higher, the patient may qualify for future screening with alternating mammogram and breast MRI. [facility], , 09/08/2024 5:26 PM. Electronically signed and approved by: Janine Mcgowan M.D. Radiologist
== END | disposition home or self-care (01) ==
LOC: RADMAMWWP 14:27
PROVIDERS: ATTEND Family Medicine
CPT/HCPCS: 77063; 77067